=== PATIENT | female | born 1980 | race Caucasian/White ===

== ENCOUNTER 2018-07-30 08:40 | Inpatient (IN) | payer BC ==
[2018-07-30] VITALS (10 sets, daily range): BP systolic 112–128; BP diastolic 62–76; PULSE 99–112; TEMP 98.9–100.1
[~2018-07-30] VITALS: Ht 165.1 cm; Wt 68.2 kg
[2018-07-30 09:34] LABS: COLLECTION METHOD CLEAN CATCH
[2018-07-30 09:38] LABS: BASO # 0.1 (0.0-0.2); BASO % 0.5 % (0.0-2.0); EOS % 0.1 % (0-4.0); GRAN # 17.8 (1.4-6.5); GRAN % 88.7 % (42.2-75.2); HEMATOCRIT 43.3 % (37.0-47.0); HEMOGLOBIN 14.7 g/dl (12.5-16.0); LYMPH % 4.9 % (20.0-51.0); MEAN CELL VOLUME 103 fl (80.0-100.0); MEAN CORPUSCULAR HEMOGLOBIN 35 pg (27.0-31.0); MEAN CORPUSCULAR HGB CONC 34 g/dl (33.0-37.0); MEAN PLATELET VOLUME 10.2 fl (7.4-10.4); MONO % 5.1 % (1.7-9.3); PLATELET COUNT 312 K/mm3 (130-400); RED BLOOD COUNT 4.22 M/mm3 (4.10-5.30); REDCELL DISTRIBUTION WIDTH-CV 12.6 % (11.5-14.5)
[2018-07-30 09:41] LABS: MUCOUS Present /lpf; PH 6 (5-8); SQUAMOUS EPITHELIAL 0-2 /hpf; URINE APPEARANCE Clear; URINE BACTERIA Rare /hpf; URINE BILIRUBIN Negative (NEGATIVE); URINE BLOOD Negative (NEGATIVE); URINE COLOR Yellow; URINE GLUCOSE Negative (NEGATIVE); URINE KETONE 2+ (NEGATIVE); URINE LEUKOCYTE ESTERASE Negative (NEGATIVE); URINE NITRATE Negative (NEGATIVE); URINE PROTEIN(semi-quant) Negative (NEGATIVE); URINE RBC 0-2 /hpf; URINE UROBILINOGEN Negative (NEGATIVE)
[2018-07-30 09:54] LABS: ALBUMIN 4.9 gm/dL (3.5-5.0); C-REACTIVE PROTEIN 0.6 mg/dL (0.0-0.9); CALCIUM 10.7 mg/dL (8.4-10.2); CREATININE, serum 0.62 mg/dL (0.52-1.25); POTASSIUM 4.3 mmol/L (3.4-5.0); TOTAL PROTEIN 8.4 gm/dL (6.4-8.2)
--- NOTE | 2018-07-30 15:26 | NUR ---
1500 PT ARRIVES FROM ED VIA CART AND TO BED. 1526 ASSESSMENT COMPLETED AND PLAN OF CAR DISCUSSED WITH PT AND SPOUSE.
--- NOTE | 2018-07-30 18:37 | NUR ---
1810 RETURED TO RM 221 FROM PACU. MONITORS IN PLACE. ICE CHIPS, WTER AND CRACKERS PROVDED. 182 SPOUSE IN ROOM. 182 REPORT TO NEXT SHIFT AND CARE ASSUMED BY SAME.
--- NOTE | 2018-07-30 21:50 | NUR ---
Pt calls out stating " I was sleeping and woke up in a lot of pain, in my stomach and in my R shoulder" IV Morphine given, K-pad provided.
[2018-07-31 06:45] VITALS: BP 97/64; PULSE 102; TEMP 99.8
[2018-07-31 07:26] LABS: HEMATOCRIT 37.4 % (37.0-47.0); MEAN CELL VOLUME 102 fl (80.0-100.0); MEAN CORPUSCULAR HEMOGLOBIN 35 pg (27.0-31.0); MEAN CORPUSCULAR HGB CONC 34 g/dl (33.0-37.0); MEAN PLATELET VOLUME 9.8 fl (7.4-10.4); PLATELET COUNT 225 K/mm3 (130-400); RED BLOOD COUNT 3.67 M/mm3 (4.10-5.30)
[2018-07-31 07:28] LABS: HEMOGLOBIN 12.7 g/dl (12.5-16.0)
[2018-07-31 07:36] LABS: BAND 16 % (0-10); LYMPHOCYTE 10 % (20.0-51.0); NEUTROPHILS 67 % (42.0-75.2); PLATELET ESTIMATE NORMAL (NORMAL)
--- NOTE | 2018-07-31 09:13 | NUR ---
Initial visit; Patient thanked Broodmare Barn Groom for looking in on her, offering healing blessings and for keeping her in Brood[employer] Groom's prayers.
[2018-07-31 10:40] VITALS: TEMP 98.7
[2018-07-31 13:10] VITALS: BP 92/61; PULSE 105; TEMP 98.4
[2018-07-31 16:30] VITALS: BP 99/68; PULSE 92; TEMP 98.4
[2018-07-31 21:00] VITALS: BP 96/50; PULSE 86; TEMP 98.1
[2018-08-01 01:00] VITALS: BP 101/57; BP 95/64; PULSE 91; PULSE 96; TEMP 97.8; TEMP 98.3
[2018-08-01 05:00] VITALS: BP 96/59; PULSE 90; TEMP 98.4
[2018-08-01 07:08] LABS: HEMATOCRIT 42.6 % (37.0-47.0); HEMOGLOBIN 14.4 g/dl (12.5-16.0); MEAN CELL VOLUME 101 fl (80.0-100.0); MEAN CORPUSCULAR HEMOGLOBIN 34 pg (27.0-31.0); MEAN CORPUSCULAR HGB CONC 34 g/dl (33.0-37.0); MEAN PLATELET VOLUME 10.8 fl (7.4-10.4); PLATELET COUNT 232 K/mm3 (130-400); RED BLOOD COUNT 4.21 M/mm3 (4.10-5.30); REDCELL DISTRIBUTION WIDTH-CV 12.7 % (11.5-14.5)
[2018-08-01 07:17] LABS: ALBUMIN 3.7 gm/dL (3.5-5.0); BILIRUBIN,TOTAL 1.8 mg/dL (0.0-1.0); CALCIUM 9.7 mg/dL (8.4-10.2); CREATININE, serum 0.85 mg/dL (0.52-1.25); POTASSIUM 3.1 mmol/L (3.4-5.0); TOTAL PROTEIN 6.7 gm/dL (6.4-8.2)
[2018-08-01 07:25] LABS: BAND 21 % (0-10); LYMPHOCYTE 16 % (20.0-51.0); NEUTROPHILS 60 % (42.0-75.2); PLATELET ESTIMATE NORMAL (NORMAL)
[2018-08-01 08:45] VITALS: BP 88/57; PULSE 113; TEMP 98.2
== END 2018-08-01 13:30 | disposition home or self-care (01) | DRG 343 ==
LOC: COL.ER 08:40 → OB 13:52
PROVIDERS: Physician Assistant; ADMIT Surgery
PROC: 0DTJ4ZZ Resection of Appendix, Percutaneous Endoscopic Approach (ICD-10-PCS; principal; 2018-07-30 15:45)
DX: K35.891 Other acute appendicitis without perforation, with gangrene (principal); Z87.891 Personal history of nicotine dependence
CPT/HCPCS: G0378; J1100; J1170; J1885; J2250; J2270; J2405; J2543; J2550; J2704; J3010; J7030; Q9967

== ENCOUNTER 2018-08-03 15:06 | Inpatient (IN) | payer BC ==
[~2018-08-03] VITALS: Ht 165.1 cm; Wt 66.7 kg
[2018-08-03 15:58] LABS: BASO # 0.1 (0.0-0.2); BASO % 0.6 % (0.0-2.0); EOS % 0.1 % (0-4.0); GRAN # 6.2 (1.4-6.5); GRAN % 68.4 % (42.2-75.2); HEMATOCRIT 39.9 % (37.0-47.0); HEMOGLOBIN 14.1 g/dl (12.5-16.0); LYMPH % 11.2 % (20.0-51.0); MEAN CELL VOLUME 97 fl (80.0-100.0); MEAN CORPUSCULAR HEMOGLOBIN 34 pg (27.0-31.0); MEAN CORPUSCULAR HGB CONC 35 g/dl (33.0-37.0); MEAN PLATELET VOLUME 10.7 fl (7.4-10.4); MONO # 1.2 (0.1-0.6); PLATELET COUNT 307 K/mm3 (130-400); RED BLOOD COUNT 4.12 M/mm3 (4.10-5.30); REDCELL DISTRIBUTION WIDTH-CV 12.8 % (11.5-14.5)
[2018-08-03] MEDS ORDERED: TYLENOL 500MG500 MG PO (15:59)
[2018-08-03] MEDS ORDERED: ROXICODONE 55 MG/TAB PO (16:05)
[2018-08-03] MEDS ORDERED: ZOFRAN 4MG T4 MG/TAB PO (16:05)
[2018-08-03] MEDS ORDERED: AMOXICILLIN 8751 TAB PO (16:05)
[2018-08-03] MEDS ORDERED: COLACE 100100 MG/CAP PO (16:06)
[2018-08-03] MEDS ORDERED: MIRALAX119G PO (16:06)
[2018-08-03] MEDS ORDERED: DULCOLAX STOOL100 MG PO (16:06)
[2018-08-03 16:13] LABS: ALBUMIN 3.2 gm/dL (3.5-5.0); BILIRUBIN,TOTAL 1.6 mg/dL (0.0-1.0); CALCIUM 9.4 mg/dL (8.4-10.2); CREATININE, serum 0.79 mg/dL (0.52-1.25); POTASSIUM 3.7 mmol/L (3.4-5.0)
[2018-08-03 16:39] LABS: C-REACTIVE PROTEIN 37.7 mg/dL (0.0-0.9)
--- NOTE | 2018-08-03 17:15 | NUR ---
Received patient from ED with post-op ileus. Abdomen distended and firm. No bowel sounds heard per auscultation. Denies flatus. Denies need for pain medication at this time. IV fluids infusing.
[2018-08-03 17:20] VITALS: BP 118/75; PULSE 92; TEMP 98.4
--- NOTE | 2018-08-03 18:30 | NUR ---
Ambulating in halls with spouse without complaint.
[2018-08-03 20:07] VITALS: BP 104/88; PULSE 98; TEMP 97.5
[2018-08-04] VITALS (7 sets, daily range): BP systolic 109–125; BP diastolic 70–75; PULSE 93–111; TEMP 98.5–100.4
--- NOTE | 2018-08-04 06:20 | NUR ---
PT IN BED. ZOFRAN FOR NAUSEA. DILAUDID FOR PAIN. ABDOMEN DISTENDED. HYPOACTIVE BOWEL TONES.
[2018-08-04 07:13] LABS: HEMATOCRIT 35.3 % (37.0-47.0); HEMOGLOBIN 12.4 g/dl (12.5-16.0); MEAN CELL VOLUME 98 fl (80.0-100.0); MEAN CORPUSCULAR HEMOGLOBIN 34 pg (27.0-31.0); MEAN CORPUSCULAR HGB CONC 35 g/dl (33.0-37.0); MEAN PLATELET VOLUME 11.1 fl (7.4-10.4); PLATELET COUNT 302 K/mm3 (130-400); RED BLOOD COUNT 3.62 M/mm3 (4.10-5.30)
[2018-08-04 07:22] LABS: CALCIUM 8.1 mg/dL (8.4-10.2); CREATININE, serum 0.61 mg/dL (0.52-1.25); POTASSIUM 3.1 mmol/L (3.4-5.0)
--- NOTE | 2018-08-04 09:00 | NUR ---
Patient alert and oriented, answers questions appropriately. See assessment. Abdomen round, distended. Bowel sounds absent x4 quads. No flatus. C/o nausea, pain 8/10. No other c/o at this time.
--- NOTE | 2018-08-04 11:51 | NUR ---
toll transmission worker met with patient and spouse to discuss discharge planning. Patient lives with spouse and plans to return there upon discharge. Patient's is independent with her activities of daily living and her primary care provider is Dr Lake. Patient denies having difficulty obtaining her prescriptions.
--- NOTE | 2018-08-04 12:40 | NUR ---
Order received per Dr Stratton to insert NGT. NGT inserted with no complications. Immediate return of large amount of green drainage. Patient had immediate relief of abdominal pain/pressure as well. NGT inserted to 55cm naseem and secured with NG secure.
--- NOTE | 2018-08-04 20:30 | NUR ---
Patient in bed. Has NGT to right nare to LIS with green drainage returning. Abdomen distended, with few bowel sounds noted. Placement of NGT confirmed with air bolus. Reports pain 6/10 to abdomen, was given IV Dilaudid at 1999. IV site to left AC with fluids infusing at 150cc/hr, no redness or swelling noted. Lap sites from previous Lap Appy are healed, has bruising to all sites to abdomen.
--- NOTE | 2018-08-04 23:02 | NUR ---
Complains of pain 6/10 to abdomen and side. Medicated with Dilaudid 0.5mg IV now.
[2018-08-05] VITALS (12 sets, daily range): BP systolic 95–121; BP diastolic 56–72; PULSE 101–122; TEMP 98–99.1
--- NOTE | 2018-08-05 02:39 | NUR ---
Pt complains of pain to abdomen 6/10, sharp and pressure. Has NGT to right nare to LIS. Medicated with IV Dilaudid 0.5mg now. IVF to left AC infusing without redness or swelling. Remains on ice chips and sips only.
--- NOTE | 2018-08-05 05:50 | NUR ---
Patient up to bathroom, voids 200cc of mallory urine at this time. Reports pain 6/10 to abdomen and into her back. Medicated with IV Dilaudid 0.5mg now. NGT had 700cc of green drainage through the night. Taking ice chips sparingly. Patient appears more uncomfortable as the night has gone on.
[2018-08-05 06:21] LABS: HEMOGLOBIN 12.3 g/dl (12.5-16.0); MEAN CELL VOLUME 97 fl (80.0-100.0); MEAN CORPUSCULAR HEMOGLOBIN 34 pg (27.0-31.0); MEAN CORPUSCULAR HGB CONC 35 g/dl (33.0-37.0); MEAN PLATELET VOLUME 10.6 fl (7.4-10.4); PLATELET COUNT 345 K/mm3 (130-400); RED BLOOD COUNT 3.67 M/mm3 (4.10-5.30); REDCELL DISTRIBUTION WIDTH-CV 13.2 % (11.5-14.5)
[2018-08-05 06:38] LABS: HEMATOCRIT 35.4 % (37.0-47.0)
[2018-08-05 06:41] LABS: ALBUMIN 2.3 gm/dL (3.5-5.0); BILIRUBIN,TOTAL 1.3 mg/dL (0.0-1.0); CALCIUM 7.6 mg/dL (8.4-10.2); CREATININE, serum 0.58 mg/dL (0.52-1.25); TOTAL PROTEIN 4.8 gm/dL (6.4-8.2)
[2018-08-05 07:00] LABS: POTASSIUM 2.8 mmol/L (3.4-5.0)
[2018-08-05 07:02] LABS: BAND 29 % (0-10); LYMPHOCYTE 8 % (20.0-51.0); NEUTROPHILS 54 % (42.0-75.2); PLATELET ESTIMATE NORMAL (NORMAL)
--- NOTE | 2018-08-05 09:07 | NUR ---
Patient alert and oriented, answers questions appropriately. See assessment. Dr Stratton notified at 0700 of lab values and status update, see orders. NGT remains to LIS, secured to nose, flushes easily, dark brown liquid in canister. Abdomen rounded and firm. No bowel sounds heard. No flatus. Pain to abdomen with palpation. NGT clamped for CT contrast administration. No other c/o at this time.
--- NOTE | 2018-08-05 09:12 | NUR ---
Dr Stratton here to see patient.
--- NOTE | 2018-08-05 09:59 | NUR ---
Initial visit; Patient and her thanked Cigarette Book Maker for looking in on her and offering God's blessings.
--- NOTE | 2018-08-05 16:58 | NUR ---
Patient returns from PACU. Assessment unchanged except for; abdomen soft, non distended. Bowel sounds absent. No flatus. Midline incision with dressing clean, dry and intact. NGT remains in place to right nare connected to LIS, brown drainage noted. Griffin catheter intact and draining clear yellow urine. PCEA setting verified agaisnt MAR, epidural catheter intact, no complications noted. No numbness or tingling to BLE, pulses palpable. No c/o at this time.
--- NOTE | 2018-08-05 20:15 | NUR ---
Patient awakens to name. Is alert, medicated with Epidural pump infusing at 6cc/hr. Has NGT to right nare, is to LIS with green drainage noted in the tubing. Lungs diminished bilaterally, does poor return demonstration of IS use. Taking ice chips moderately. Has midline incision covered with ABD dressing. Bowel sounds quiet. NGT placement confirmed with air bolus. Has crowder to BSD with yellow urine. PICC to right upper arm with IVF D5NS with 20 KCL infusing at 125cc/hr, no redness or swelling. SCD's in place bilateral lower extremities. Family at bedside. Patient reports pain 2/10.
--- NOTE | 2018-08-05 22:09 | NUR ---
PT INSTRUCTED ON IS. FAMILY IN ROOM. PT DEMONSTRATED IS X 2 BREATHS AT LESS THAN 500. I SAID YOU REALLY NEED TO WORK ON THIS. THE SAID SHE IS JUST WAKING UP CAN WE NOT WAIT ON THIS. I SAID SHE NEEDS TO BE DOING THIS TO HELP PREVENT ISSUES WITH HER LUNGS SINCE SHE IS NOT DEEP BREATHING. I INFORMED THEM THAT SHE NEEDS TO BE DOING THIS EVERY HOUR AND NEEDS TO WORK ON GETTING IT ABOVE 500. THE SAID OK.
[2018-08-06] VITALS (7 sets, daily range): BP systolic 97–147; BP diastolic 51–78; PULSE 84–117; TEMP 97.7–100.1
--- NOTE | 2018-08-06 00:10 | NUR ---
Patient has Temp 100.1. Instructed on use of IS, does return demo at this time.
[2018-08-06 06:17] LABS: MEAN CELL VOLUME 95 fl (80.0-100.0); MEAN CORPUSCULAR HGB CONC 36 g/dl (33.0-37.0); MEAN PLATELET VOLUME 11.1 fl (7.4-10.4); PLATELET COUNT 352 K/mm3 (130-400); REDCELL DISTRIBUTION WIDTH-CV 13.4 % (11.5-14.5)
[2018-08-06 06:33] LABS: HEMATOCRIT 28.5 % (37.0-47.0); HEMOGLOBIN 10.3 g/dl (12.5-16.0); MEAN CORPUSCULAR HEMOGLOBIN 34 pg (27.0-31.0)
[2018-08-06 06:48] LABS: ALBUMIN 1.7 gm/dL (3.5-5.0); BILIRUBIN,TOTAL 1.6 mg/dL (0.0-1.0); CALCIUM 6.7 mg/dL (8.4-10.2); CREATININE, serum 0.57 mg/dL (0.52-1.25); POTASSIUM 3.2 mmol/L (3.4-5.0); TOTAL PROTEIN 3.9 gm/dL (6.4-8.2)
--- NOTE | 2018-08-06 06:50 | NUR ---
appears to be sleeping, bedside shift report received from NATI Frost
--- NOTE | 2018-08-06 07:15 | NUR ---
appears to continue to sleep, Dr Stratton notified of elevated WBC
[2018-08-06 07:45] LABS: BAND 30 % (0-10); LYMPHOCYTE 6 % (20.0-51.0); NEUTROPHILS 60 % (42.0-75.2); PLATELET ESTIMATE NORMAL (NORMAL)
--- NOTE | 2018-08-06 08:15 | NUR ---
awake resting in bed, full assessment completed, see interventions for further info, was able to roll to side and epidural checked, has 4-5cm area of shadowing on abdominal dressing, NG to low intermittent suction with light green fluid in tubing, states epidural is controlling her pain and explained the use of the TRAY CHECKER button as she had forgotten how to use this, is at bedside now
--- NOTE | 2018-08-06 09:00 | NUR ---
PICC intact right upper arm. With sterile technique right upper arm PICC dressing change done with insertion site cleansed with ChloraPrep 1, gauze removed with no drainage noted, skin prep, chlorhexidine impregnated disc applied, and StatLock applied, no signs or symptoms of IV complications. noted no concerns voiced. arm wrapped with Freeman to protect catheter.
--- NOTE | 2018-08-06 09:45 | NUR ---
assisted up to side of bed and moves well, then assisted her to standing and over and into recliner, did well while moving, reminded to use her INTEGRITY SPECIALIST, has mod amount green liquid from NG in reservoir
[2018-08-06 10:39] LABS: MAGNESIUM 2.4 mg/dL (1.6-2.3); PHOSPHOROUS 2.2 mg/dL (2.5-4.5)
--- NOTE | 2018-08-06 11:00 | NUR ---
remains up in chair visiting with a friends, explained to her we will assist her with ambulating to the mijares and then to bed to rest, verbalizes understanding
--- NOTE | 2018-08-06 12:00 | NUR ---
Dr Stratton in to see tono
--- NOTE | 2018-08-06 12:30 | NUR ---
assisted her with cleaning up and changing her gown, then assisted oaut of chair and ambulated to door and back to bed, into bed and will try to sleep,
[2018-08-06 13:19] LABS: CHOLESTEROL 85 mg/dL (120-200); TRIGLYCERIDE 137 mg/dL
--- NOTE | 2018-08-06 15:00 | NUR ---
awakened and states has been sleeping well, informed her and her about blood sugars and possible insulin every 6h when TPN starts and verbalizes understanding, will plan to get up and take for a walk when TPN starts
--- NOTE | 2018-08-06 16:15 | NUR ---
she is awake and talking on phone, TPN started and IV fluids stopped, assisted out of bed and ambulated in mijares about 25 feet, tolerated well, then back to room and into recliner to rest, at bedside
--- NOTE | 2018-08-06 17:12 | NUR ---
resting in chair visiting with friends and
--- NOTE | 2018-08-06 18:40 | NUR ---
visiting with family and friends, bedside shift report given to NATI Frost
--- NOTE | 2018-08-06 21:00 | NUR ---
Patient in bed, alert and oriented x3. Family visiting. Has NGT to right nare to LIS with light green drainage. Air bolus confirmed placement of tube in the stomach. Lungs clear, uses IS better today. Abdominal midline dressing intact, shadowing noted same as yesterday. Bowel sounds remain quiet. Griffin to BSD with dk yellow urine. Has swelling to labia. Patient reports numbness to left outer leg and tightness to both thighs. Reassured numbness most likely due to epidural. No pitting edema noted to thighs. Has Epidural dressing to back, site secure. Right upper arm PICC with TPN infusing without problem. Wearing SCD's to lower legs. Taking ice chips without problem. Reports pain 2/10. No flatus.
[2018-08-07 01:57] VITALS: BP 102/54; PULSE 110; TEMP 98.6
--- NOTE | 2018-08-07 06:25 | NUR ---
Patient rested well this shift. No fevers to report. TPN infusing to R PICC line. Patient reports feeling "fluffy" all over, skin feels tight to her. No pitting edema to report, bilateral labia with swelling, offered ice pack which she refused. NGT with 100cc out this shift. Taking ice chips for oral moisture.
--- NOTE | 2018-08-07 06:35 | NUR ---
appears to be sleeping, bedside shift report received from NATI Frost
[2018-08-07 06:44] LABS: MEAN CELL VOLUME 98 fl (80.0-100.0); MEAN CORPUSCULAR HGB CONC 35 g/dl (33.0-37.0); MEAN PLATELET VOLUME 10.8 fl (7.4-10.4); PLATELET COUNT 379 K/mm3 (130-400); RED BLOOD COUNT 2.83 M/mm3 (4.10-5.30); REDCELL DISTRIBUTION WIDTH-CV 14.2 % (11.5-14.5)
[2018-08-07 06:48] LABS: HEMATOCRIT 27.6 % (37.0-47.0); HEMOGLOBIN 9.7 g/dl (12.5-16.0); MEAN CORPUSCULAR HEMOGLOBIN 34 pg (27.0-31.0)
[2018-08-07 07:01] LABS: CREATININE, serum 0.57 mg/dL (0.52-1.25); MAGNESIUM 2.2 mg/dL (1.6-2.3); PHOSPHOROUS 1.5 mg/dL (2.5-4.5)
[2018-08-07 07:17] LABS: BAND 10 % (0-10); LYMPHOCYTE 6 % (20.0-51.0); NEUTROPHILS 79 % (42.0-75.2); PLATELET ESTIMATE NORMAL (NORMAL)
[2018-08-07 07:21] LABS: STOMATOCYTE 1+
--- NOTE | 2018-08-07 07:50 | NUR ---
appears to continue to sleep
--- NOTE | 2018-08-07 08:37 | NUR ---
spoke with Dr Stratton and given results of lab and Temp, will medicate with tylenol 650mg po
[2018-08-07 09:00] VITALS: BP 108/61; PULSE 119; TEMP 102.2
--- NOTE | 2018-08-07 09:00 | NUR ---
full assessment completed, see interventions for further info, medicated with tylenol 650mg po, NG turned off from LIS, has dark green liquid in tubing, crowder cath patent draining clear dark mallory urine, has generalized edema and also edema to labia, tried to explain to her this was not abnormal and was not related to the TPN, would like to speak with dietitian and Radha was notified, abdominal dressing remains intact with some shadowing, suction tube attachment device to nose replaced, will assist her with hygeine and then will ambulat in the mijares
--- NOTE | 2018-08-07 10:19 | NUR ---
ambulated out in mijares to nurses station and back and moves well, states legs feel heavier today, ambulates with steady gait, back into room and into bed and will try and sleep for a while before visitors come, ice bag placed to labia for swelling, NG reconnected to Low Intermittent Suction with light green fluid in tubing, denied any nausea or vomitting after taking po tylenol and while tube was clamped,
--- NOTE | 2018-08-07 11:30 | NUR ---
assisted out of bed and into recliner, uses epidural SKIN DIVER after getting out of bed and into recliner, states ice bag to labia was helpful, at bedside and she is ready visit with some friends, denies needs
[2018-08-07 11:44] VITALS: BP 106/64; PULSE 108; TEMP 98.4
--- NOTE | 2018-08-07 12:23 | NUR ---
remains in chair visiting with friends and family and denies needs
--- NOTE | 2018-08-07 13:50 | NUR ---
visitors are gone and is ready to take a walk, ambulated down mijares approx 75 feet and then back to room and into bed and will try and take a nap, explained to her I will be back around 1515 to change IV fluids and verbalizes understanding, ice to salena,
--- NOTE | 2018-08-07 15:10 | NUR ---
appears to be dozing but awakened easily when entered room, denies needs,
[2018-08-07 16:58] VITALS: BP 114/60; PULSE 117; TEMP 99.4
--- NOTE | 2018-08-07 17:00 | NUR ---
Niurka visiting with and friends
--- NOTE | 2018-08-07 17:15 | NUR ---
assisted with ambulating in mijares approx 75-100 feet, c/o feeling like her abdomen was bigger than had been this am, is able to belch but still no flatus rectally, abdomen is soft and NG remains to Low Intermittent Suction, labia remains very edematous,
--- NOTE | 2018-08-07 18:30 | NUR ---
after being up in chair a short time noticied NG output had increased and had another 500ml green liquid in suction reservoir, dressing to abdomen removed, incision with leo and michael, each wick avanced 1/2 inch, incision has some brusing to distal end, covered with 4x4s and taped in place, tolerated well, is in bed now resting with at bedside
--- NOTE | 2018-08-07 18:52 | NUR ---
bedside shift report given to ELI Shaw
[2018-08-07 20:00] VITALS: BP 104/65; PULSE 117; TEMP 97.6
--- NOTE | 2018-08-07 20:00 | NUR ---
Patient resting in bed, family at bedside. Patient is alert and oriented, answers questions appropriately. TPN infusing per order to PICC in RUE. NG tube to LIS with pale green output in suction tubing. Midline incision dressing is CDI. Epidural in place, occlusive dressing intact. Patient has some generalized edema, evident in her lower extremities. Patient does complain of some pain in her right anterior ribs, states she believes the area to be just outside the reach of the epidural. Provided a warm pack, patient states this provides relief. Patient denies further needs at this time, call light within reach.
[2018-08-08] VITALS (216 sets, daily range): BP systolic 103–113; BP diastolic 60–66; PULSE 118–124; TEMP 98.2–99.5; O2SAT 47–100
[2018-08-08 06:21] LABS: HEMOGLOBIN 10.1 g/dl (12.5-16.0); MEAN CELL VOLUME 95 fl (80.0-100.0); MEAN CORPUSCULAR HEMOGLOBIN 34 pg (27.0-31.0); MEAN CORPUSCULAR HGB CONC 36 g/dl (33.0-37.0); MEAN PLATELET VOLUME 10.9 fl (7.4-10.4); PLATELET COUNT 397 K/mm3 (130-400); RED BLOOD COUNT 2.98 M/mm3 (4.10-5.30); REDCELL DISTRIBUTION WIDTH-CV 14.4 % (11.5-14.5)
[2018-08-08 06:32] LABS: ALBUMIN 1.8 gm/dL (3.5-5.0); BILIRUBIN,TOTAL 0.9 mg/dL (0.0-1.0); CALCIUM 7.3 mg/dL (8.4-10.2); CREATININE, serum 0.48 mg/dL (0.52-1.25); MAGNESIUM 2.2 mg/dL (1.6-2.3); PHOSPHOROUS 3.1 mg/dL (2.5-4.5); POTASSIUM 3.1 mmol/L (3.4-5.0); TOTAL PROTEIN 4.3 gm/dL (6.4-8.2)
[2018-08-08 06:38] LABS: HEMATOCRIT 28.3 % (37.0-47.0)
[2018-08-08 07:09] LABS: BAND 3 % (0-10); LYMPHOCYTE 4 % (20.0-51.0); MYELOCYTE 1 % (0-0); NEUTROPHILS 86 % (42.0-75.2); PLATELET ESTIMATE NORMAL (NORMAL)
[2018-08-08 07:14] LABS: TARGET CELLS 1+
--- NOTE | 2018-08-08 09:00 | NUR ---
Patient alert and oriented, answers questions appropriately. C/o nausea/vomitting despite NGT to LIS in place. No output noted in NG canister. NGT irrigated with tap water with gross amounts of stomach content returned in canister. Nausea resolved. NGT in right nare and secured to nose. Abdomen firm, distended. Tinkling bowel sounds noted to all four quads. States +flatus through the night. PCEA settings verified against MAR. Epidural catheter in place and secured with foam tape to low back, small amount serosanguinous drainage noted to insertion site. No c/o numbness or tingling noted to BLE, pulses palpable. Griffin catheter in place, patent and draining mallory urine. Labial swelling noted, thick white discharged noted around catheter site, c/o labial itching. C/o mid back pain 09/28. Dr Stratton updated on patient status.
--- NOTE | 2018-08-08 10:00 | NUR ---
CT constrast given per NGT. NGT clamped. Patient incontinent of large amount liquid stool.
--- NOTE | 2018-08-08 14:45 | NUR ---
Anesthesia at bedside replacing epidural catheter.
--- NOTE | 2018-08-08 15:26 | NUR ---
Report received from Maryana promotions assistant.
--- NOTE | 2018-08-08 16:30 | NUR ---
Pt arrived to ICU 2 via bed. Pt A/Ox3. Has some abd pain while turning. Epidural dressing c/d/i. Midline abd dressing c/d/i. NGT in right nare to LIS. Green drainage present. now at bedside. will monitor.
--- NOTE | 2018-08-08 16:35 | NUR ---
Dr Low at bedside discussing plan of care with pt and pt's .
--- NOTE | 2018-08-08 17:00 | NUR ---
Pt starting to c/o back pain all over. Epidural dressing saturated. Anesthesia paged. Will come see pt.
--- NOTE | 2018-08-08 17:20 | NUR ---
Dr Stratton at bedside. updated on pt status. 2mg IV morphine given for breakthrough pain. No changes with back pain. Anesthesia paged again.
--- NOTE | 2018-08-08 17:55 | NUR ---
Anesthesia at bedside. Epidural site checked. Dressing reapplied. Anesthesia administered bolus dose through epidural. Pt states she feels numbness on BLE. Anesthesia monitoring at bedside.
--- NOTE | 2018-08-08 18:10 | NUR ---
Pt's HR St 130s. SBP 70s after bolus dose given. Anesthesia and Dr Low at bedside.
[2018-08-08 18:11] LABS: ARTERIAL BLD GAS O2 SATURATION 96.2 % (92-100); ARTERIAL BLD GAS TCO2 CT 24.2; ARTERIAL BLOOD GAS BASE EXCESS 0.3 (-2-2); ARTERIAL BLOOD GAS HCO3 23.3 meq/L (22-26); ARTERIAL BLOOD GAS PCO2 31.6 mmHg (35-45); ARTERIAL BLOOD GAS PO2 81.7 mmHg (80-100); ARTERIAL BLOOD GAS pH 7.49 (7.35-7.45)
--- NOTE | 2018-08-08 18:15 | NUR ---
SBP improved after lowering pt's HOB. Pt states she still feels numb on BLE. Anesthesia aware. Pt's at bedside. Will monitor.
[2018-08-08 18:16] LABS: CALCIUM 7.2 mg/dL (8.4-10.2); CREATININE, serum 0.46 mg/dL (0.52-1.25); POTASSIUM 3.4 mmol/L (3.4-5.0)
--- NOTE | 2018-08-08 19:00 | NUR ---
Report given to NATI Victor.
--- NOTE | 2018-08-08 19:45 | NUR ---
PT HAS EPIDURAL. ANESTHESIA PRESENT. EPIDURAL SITE CURRENTLY BEING CHANGED BY ANESTHESIA. EPIDURAL IS THORACIC LEVEL. PT IS NUMB AT WAIST LEVEL AND STATES SHE THINKS THE ANESTHESIA IS STARTING TO WEAR OFF.
--- NOTE | 2018-08-08 22:45 | NUR ---
PT HAS FULL SENSORY AND MOTOR FUNCTION RETURN TO BILAT LOWER LEGS.
--- NOTE | 2018-08-08 23:00 | NUR ---
PT ABD MIDLINE SURGICAL SITE DRESSING CHANGED. CONTACTED DR GRANDE FOR ORDER CLARIFICATION FOR DRESSING CHANGE; WAS INSTRUCTED TO WITHDRAWL WOUND MARCOS. ORDER ON COMPUTER STATES TO ADVANCE WOUND MARCOS. PT DRESSING HAS SEROSANGUIOUS DRAINAGE.
[2018-08-09] VITALS (586 sets, daily range): O2SAT 38–100
[2018-08-09 05:14] LABS: MEAN CELL VOLUME 99 fl (80.0-100.0); MEAN CORPUSCULAR HGB CONC 34 g/dl (33.0-37.0); MEAN PLATELET VOLUME 11.1 fl (7.4-10.4); PLATELET COUNT 436 K/mm3 (130-400); RED BLOOD COUNT 2.52 M/mm3 (4.10-5.30); REDCELL DISTRIBUTION WIDTH-CV 15.1 % (11.5-14.5)
[2018-08-09 05:21] LABS: HEMOGLOBIN 8.6 g/dl (12.5-16.0); MEAN CORPUSCULAR HEMOGLOBIN 34 pg (27.0-31.0)
[2018-08-09 05:31] LABS: ALBUMIN 1.8 gm/dL (3.5-5.0); BILIRUBIN,TOTAL 0.7 mg/dL (0.0-1.0); CALCIUM 7.2 mg/dL (8.4-10.2); CREATININE, serum 0.5 mg/dL (0.52-1.25); MAGNESIUM 2.3 mg/dL (1.6-2.3); PHOSPHOROUS 3.2 mg/dL (2.5-4.5); POTASSIUM 3.6 mmol/L (3.4-5.0); TOTAL PROTEIN 4.2 gm/dL (6.4-8.2)
[2018-08-09 06:05] LABS: INR 1.7 (0.8-3.0); PROTHROMBIN TIME 19.1 SECONDS (9.7-12.8)
[2018-08-09 06:11] LABS: BAND 19 % (0-10); LYMPHOCYTE 6 % (20.0-51.0); NEUTROPHILS 72 % (42.0-75.2); PLATELET ESTIMATE INCREASED (NORMAL); TARGET CELLS 1+
[2018-08-09 06:12] LABS: POIKILOCYTOSIS 1+
--- NOTE | 2018-08-09 07:00 | NUR ---
PT REPORT HANDED OFF AT 0730. WHEN REPORT WAS HANDED OFF 08/08/18 1900; PT CHARTING INTERVENTIONS WERE NOT ENTERED IN APPROPRIATELY PER UNIT GUIDELINES. THIS WAS NOT IDENTIFIED UNTIL [id number]. ITEMS ARE NOW CORRECTED.
--- NOTE | 2018-08-09 07:15 | NUR ---
RECEIVED REPORT FROM NATI DAWSON.
--- NOTE | 2018-08-09 08:35 | NUR ---
DR. GRANDE AT BEDSIDE FOR ROUNDS, MID ABDOMEN INCISION DRESSING CHANGED PER DR'S ORDER. YELLOWISH DARINAGE NOTED AT THE INCISION, CLEANSE AND NEW DRESSING APPLIED.
--- NOTE | 2018-08-09 08:45 | NUR ---
NGT CLAMPED PER DR. GRANDE' ORDER.
--- NOTE | 2018-08-09 10:30 | NUR ---
THORACENTESIS DONE AT BEDSIDE BY DR. AKERS, PT TOLERATED PROCEDURE WELL. PUNCTURE SITE AT L BACK COVERED EDIE SHANKAR. WILL CONTINUE TO MONITOR.
[2018-08-09 11:07] LABS: ARTERIAL BLD GAS O2 SATURATION 93.4 % (92-100); ARTERIAL BLD GAS TCO2 CT 23.9; ARTERIAL BLOOD GAS PCO2 31.2 mmHg (35-45); ARTERIAL BLOOD GAS PO2 64.9 mmHg (80-100); ARTERIAL BLOOD GAS pH 7.49 (7.35-7.45)
[2018-08-09 12:30] LABS: PLEURAL FLUID RBC 3000 /mm3 (0-0); PLEURAL FLUID WBC 916 /mm3
[2018-08-09 12:32] LABS: PLEURAL FLUID APPEARANCE CLOUDY; PLEURAL FLUID COLOR YELLOW
--- NOTE | 2018-08-09 12:45 | NUR ---
RECHECKED GASTRIC RESIDUAL VIA NGT, 200 ML OF GREEN FLUID REPORTED TO DR. GRANDE, ORDERED TO KEEP CLAMPED FOR ANOTHER FOUR HOURS AND RECHECK.
[2018-08-09 12:57] LABS: GLUCOSE,PLEURAL FLUID 116 mg/dL
[2018-08-09 13:00] LABS: TOTAL PROTEIN,PLEURAL FLUID < 2.0 gm/dL
--- NOTE | 2018-08-09 17:04 | NUR ---
PT'S NGT BACK TO LOW INTERMITTENT SUCTION ORDERED BY DR. GRANDE.
--- NOTE | 2018-08-09 17:10 | NUR ---
REPORT GIVEN TO NATI DAWSON.
--- NOTE | 2018-08-09 20:00 | NUR ---
WILL ASSESS PT POSTERIOR ONCE PAIN UNDER CONTROL. NOTICED BURISING AROUND PT MIDLINE AND LAP INCISIONS. ASSESSMENT CONVEYED TO DR GRANDE OVER PHONE. PT REMAINS PRE AND POST MED ADMINISTRATION 03/31 PAIN. PT DESCRIBES PAIN TO BE IN MID BACK RADIATING TO ABDOMENT A SHARP PRESSURE PAIN.
--- NOTE | 2018-08-09 20:06 | NUR ---
1905: SHIFT CHANGE REPORT INITIATED IN PT ROOM. PT IS MOANING AND IN PAIN. PT GIVEN 1MG MORPHINE IV AT 1855 BY DAY SHIFT. PT REFUSED DAY SHIFT NURSE AND ACCOUNTING PROFESSIONAL NURSE OFFER FOR PRN BENADRYL FOR ANXIETY. 1930: NURSE IN PT ROOM TO INITIATE PT ASSESSMENT. PT ASKING FOR NURSE TO CALL DOCTOR TO DO SOMETHING REGARDING PAIN. NURSE EXPLAINS TO PT WHAT MEDS CAN BE GIVEN AND WHEN AND THE IMPORTANCE OF COMPLETING AN ASSESSMENT FIRST PRIOR TO CALLING THE DOCTOR. THE DOCTOR WAS IN APPROXIMATELY TWO HOURS PRIOR AND SAW THE PT. 1934: ANESTHESIA ENTERS ROOM AND ASKS NURSE TO HOLD COMPLETING ASSESSMENT TO COME OUT TO THE HALLWAYS FOR PT SUMMARY OF SHIFT REPORT ASD ASKS FOR ADDITIONAL PRN MORPHINE TO BE ADMINISTERED. 1939: NURSE IN ROOM WITH PRN MORPHINE. ANESTHESIA REQUESTS IV BENADRYL BE ADMINISTERED. PT CONTINUES TO REFUSE. ANESTHESIA INFORMED PRN BENADRYL IS PO ONLY. ANESTHESIA CHANGES BENADRYL ORDER. 1944: ANSETHESIA BOLUS PT EPIDURAL 1952: ASSESSMENT COMPLETED. PAIN MEDS AND BENADRYL ADMINISTERED IV BY NURSE. 1999: DR GRANDE CONTACTED WITH PT UPDATE AND GIVES PRN ATIVAN ORDER PER REQUEST OF ANESTHESIA.
--- NOTE | 2018-08-09 21:30 | NUR ---
PT GIVEN WARM COMPRESS TO APPLY TO ABD FOR PAIN. PT TRIED WARM COMPRESS AT HER REQUEST AND AFTER TWO MINUTES REMOVED IT DUE TO THE WEIGHT OF THE COMPRESS CAUSED PAIN. 2234: PT NAUSEATED. HEAD OF BED ELEVATED. PT PROVIDED PRN MEDICATION
[2018-08-10] VITALS (656 sets, daily range): BP systolic 121–145; BP diastolic 67–94; PULSE 24–114; TEMP 97.9–98.1; O2SAT 33–100
--- NOTE | 2018-08-10 00:30 | NUR ---
0030: PREPARING TO REPOSTION PT WHEN FOUND EPIDURAL WAS NOT IN PLACE. AT THIS TIME ABD WAS ASSESSED AND ABD DRESSING WAS DRY AND INTACT. 0200: PREPARING PT FOR BED BATH. ABD DRESSING IS SATURATED AT THE TOP (FIRST FOUR INCHES OF DRESSING) AND OOZING AT THE BOTTOM. WOUND CULTURE SWAB COLLECTED. BED BATH PROVIDED. SITE REDRESSED WITH TELFA AND DRY GAUZE WITH PAPER TABE. PT C/O DRY MOUTH. PT PROVIDED MOUTH MOISTURIZER. WHEN CLEANING PT. GENITALIA IS SWOLLEN; TO PREVENT SKIN BREAKDOWN AND KEEP PRESSURE OFF LABIA MAJORA, DEPENDS WAS REMOVED AND GLASS STAT LOCK REMOVED. GLASS TUBING SECURED TO BED.
--- NOTE | 2018-08-10 02:00 | NUR ---
0030: PT REPOSTIONED IN BED. PT SHEET WAS WET AT HEAD OF BED PRIOR TO MOVING PT. PTS EPIDURAL SITE WAS WET AROUND. END OF EPIDURAL WAS OUT OF PT. UNKNOWN HOW LONG PT WAS NOT RECEIVING EPIDURAL MEDICATION. TELEPHONE DIRECTORY DISTRIBUTOR DRIVER PUMP ORDERS INTIATED. 0155: TELEPHONE DIRECTORY DISTRIBUTOR DRIVER PUMP SET-UP AND CONNECTED TO PT. PT INSTRUCTED ON TELEPHONE DIRECTORY DISTRIBUTOR DRIVER PUMP.
[2018-08-10 05:50] LABS: BASO # 0.1 (0.0-0.2); BASO % 0.4 % (0.0-2.0); EOS # 0.1 (0.0-0.7); EOS % 0.5 % (0-4.0); GRAN # 23.7 (1.4-6.5); GRAN % 82.9 % (42.2-75.2); LYMPH # 1.3 (1.2-3.4); LYMPH % 4.5 % (20.0-51.0); MEAN CELL VOLUME 100 fl (80.0-100.0); MEAN CORPUSCULAR HGB CONC 34 g/dl (33.0-37.0); MEAN PLATELET VOLUME 11.3 fl (7.4-10.4); MONO # 1.6 (0.1-0.6); MONO % 5.5 % (1.7-9.3); PLATELET COUNT 512 K/mm3 (130-400); RED BLOOD COUNT 2.42 M/mm3 (4.10-5.30); REDCELL DISTRIBUTION WIDTH-CV 15.2 % (11.5-14.5)
[2018-08-10 05:56] LABS: INR 1.7 (0.8-3.0); PROTHROMBIN TIME 19.5 SECONDS (9.7-12.8)
[2018-08-10 06:03] LABS: BILIRUBIN,TOTAL 0.6 mg/dL (0.0-1.0); CALCIUM 7.5 mg/dL (8.4-10.2); CREATININE, serum 0.41 mg/dL (0.52-1.25); MAGNESIUM 2.2 mg/dL (1.6-2.3); PHOSPHOROUS 3.6 mg/dL (2.5-4.5); POTASSIUM 4.1 mmol/L (3.4-5.0); TOTAL PROTEIN 4.7 gm/dL (6.4-8.2)
[2018-08-10 06:10] LABS: HEMATOCRIT 24.1 % (37.0-47.0); HEMOGLOBIN 8.2 g/dl (12.5-16.0); MEAN CORPUSCULAR HEMOGLOBIN 34 pg (27.0-31.0)
--- NOTE | 2018-08-10 07:10 | NUR ---
Report recieved from Kayleigh DAMIAN. Patient sleeps in bed, talking out loud but unable to comprehend. Call light in reach, ASSEMBLER CRIMPER in hand.
--- NOTE | 2018-08-10 07:50 | NUR ---
NG clamped at this time.
--- NOTE | 2018-08-10 08:00 | NUR ---
here, requests update, given at this time. Plan for day made. Explained use of MORTICIAN INVESTIGATOR and that only patient is allowed to push button for pain medication delivery, states understanding.
--- NOTE | 2018-08-10 10:10 | NUR ---
INSECTICIDE SPRAYER bolus 1mg given and INSECTICIDE SPRAYER demand increased to 1.5mg per Dr. Cano' previous INSECTICIDE SPRAYER orders. Jeannette RN at bedside as second nurse procurement engineer. Patient and at bedside aware of changes, voice understanding. Patient complains of pain 7.5/10, but easily returns to sleep when not stimulated. Does complain of nausea, prn Phenergan given at 0955 to help.
--- NOTE | 2018-08-10 12:15 | NUR ---
NG residual checked. Patient has rested quietly this morning. Awakens easily and answers questions appropriately but drifts off to sleep and will talk nonsense in her sleep. Takes sips of H2O without difficulty and states no nausea at this time.
--- NOTE | 2018-08-10 15:40 | NUR ---
Patient transfers up to chair with 2:1 SBA. Sits up in chair so friend can comb hair. Linens changed. Continues to refused bath or back rub. Bandaide dressing and dressing from epidural insertion removed, no drainage on either noted. 1615 Returns to bed with minimal assist, tolerates well. at side.
--- NOTE | 2018-08-10 19:29 | NUR ---
Report given to Kayleigh DAMIAN. Patient resting quietly with friend at bedside.
--- NOTE | 2018-08-10 21:51 | NUR ---
AUDIBLE BOWEL SOUNDS ALL QUADRANTS. BRUISING AROUND INCISION SITES. MINIMAL DRAINAGE PRESENT IN CENTER OF ABD DRESSING. PT A&O X3 ANSWERING ALL QUESTIONS APPROPRIATELY. PT SPEAKING TO SELF SELDOMLY. PT AFEBRILE. GOOD CERTIFIED MORTICIAN STRENGTH. EYES PERRLA. GENITALIA SWOLLEN. GLASS STAT LOCK ON RIGHT UPPER THIGH. PT CURRENNTLY RATING PAIN 8/10 IN ABD RADIATING TO MID-BACK DESCRIBED SHARP AND WORSE WHEN MOVING. PT ON 2L NC SPO2 98%, SINUS TACHYCARDIA AT 110, RESP RATE 26, BP 133/93.
--- NOTE | 2018-08-10 22:22 | NUR ---
PT PROVIDED BED BATH. POSTERIOR OF PT SHOWED NO SIGNS OF BREAKDOWN. PT ABLE TO TURN INDEPENDENTLY. PERICARE ASSISTED, PT UNABLE TO REACH PROBLEM AREAS. PERINEAL AREA IS SWOLEN AND WHITE CHUNKY DISCHARGE.
[2018-08-11] VITALS (784 sets, daily range): BP systolic 123–143; BP diastolic 77–102; PULSE 101–113; TEMP 97.7–99; O2SAT 42–100
[2018-08-11 05:15] LABS: MEAN CELL VOLUME 103 fl (80.0-100.0); MEAN CORPUSCULAR HGB CONC 34 g/dl (33.0-37.0); MEAN PLATELET VOLUME 11.2 fl (7.4-10.4); PLATELET COUNT 595 K/mm3 (130-400); RED BLOOD COUNT 2.25 M/mm3 (4.10-5.30); REDCELL DISTRIBUTION WIDTH-CV 15.2 % (11.5-14.5)
[2018-08-11 05:17] LABS: HEMATOCRIT 23.1 % (37.0-47.0); HEMOGLOBIN 7.9 g/dl (12.5-16.0); MEAN CORPUSCULAR HEMOGLOBIN 35 pg (27.0-31.0)
[2018-08-11 05:24] LABS: INR 1.7 (0.8-3.0); PROTHROMBIN TIME 19.1 SECONDS (9.7-12.8)
[2018-08-11 05:51] LABS: BAND 19 % (0-10); EOSINOPHIL 2 % (0-4); LYMPHOCYTE 7 % (20.0-51.0); NEUTROPHILS 65 % (42.0-75.2); PLATELET ESTIMATE INCREASED (NORMAL)
[2018-08-11 05:52] LABS: ANISOCYTOSIS 1+; HYPERSEGMENTED POLYS PRESENT
[2018-08-11 05:53] LABS: TARGET CELLS 1+
[2018-08-11 06:06] LABS: ALBUMIN 2.1 gm/dL (3.5-5.0); BILIRUBIN,TOTAL 0.7 mg/dL (0.0-1.0); CALCIUM 7.8 mg/dL (8.4-10.2); CREATININE, serum 0.42 mg/dL (0.52-1.25); MAGNESIUM 2.1 mg/dL (1.6-2.3); PHOSPHOROUS 4.1 mg/dL (2.5-4.5)
[2018-08-11 06:13] LABS: POTASSIUM 4.6 mmol/L (3.4-5.0)
--- NOTE | 2018-08-11 07:30 | NUR ---
Bedside report received from NATI Victor.
--- NOTE | 2018-08-11 08:00 | NUR ---
Assessment completed. Dr Low at bedside to see pt. Pt remains on BEHAVIORAL HEALTH SPECIALIST morphine for pain control. Morphine basal rate increased to 1.75mg per Dr Low's orders. Verified with NATI Victor.
--- NOTE | 2018-08-11 09:00 | NUR ---
US at bedside for paracentesis.
--- NOTE | 2018-08-11 09:30 | NUR ---
700cc out from paracentesis. Pt tolerated well. LLQ incision sutured and bandaid placed over it. VSS.
--- NOTE | 2018-08-11 12:00 | NUR ---
Pt's talking with visitors at bedside. Remains on MANAGER FRENCH morphine for pain control. States pain is tolerable. c/o some nausea. NGT still clamped. Checked residuals with 75cc of green drainage out. NGT clamped at this time. Will monitor.
[2018-08-11 12:27] LABS: PERITONEAL -POLYMORPHONUCLEAR 90.2 % (0-25); PERITONEAL FLUID RBC 4000 /mm3 (0-0)
--- NOTE | 2018-08-11 15:36 | NUR ---
Pt having some nausea. checked NGT residuals, 130cc out. NGT to LIs with green drainage out. Pt states she feels better. Friends at bedside. Call light in reach.
--- NOTE | 2018-08-11 19:00 | NUR ---
Bedside report recieved from NATI Zuniga. Patient anxious and laying in bed at this time. WOOL BRUSHER settings reviewed and confirmed to ordered in SEP. Patient reinforcement of WOOL BRUSHER use provided with understanding verbalized. Midline abdominal incision with moderate drainage noted. Lap sites CDI with edges well approximated. Paracentecis site to RLQ with bandaid in place CDI. Bed in low and locked position, call light and WOOL BRUSHER button within reach, rails up x3 and bed alarm armed. Care assumed.
--- NOTE | 2018-08-11 19:00 | NUR ---
Report given to NATI Zuniga.
--- NOTE | 2018-08-11 22:10 | NUR ---
Residual from NG is 50ml at this time. NG re-clamped.
--- NOTE | 2018-08-11 22:23 | NUR ---
Patient with increased artifact to cardiac rhythm, and SpO2 waveform, PUNCH OPERATOR alarms. Upon entering room to assess patient is noted to be attempting to climb from foot of bed. She is disoriented at this time and does not recall where she is. Reorientation provided and accepted. Patient is returned to bed and positioned for comfort. Abdominal incisions remain intact and without complication. EtCO2 nasal cannula is replaced and O2 increased to 3L for O2 saturations <90 with correlating waveform and noted tachypnea. NG tube remains at 65cm with sercuring device in place. PICC line without complication. Patient had removed socks which are replaced. Denies further needs at this time. Sensitivity of bed alarm increased. Will continue to monitor.
--- NOTE | 2018-08-11 23:56 | NUR ---
Patient continues to pick and pull at monitor cables, NC, and NG. She is frequently reoriented and attempts are made to conceal lines and tubes as possible.
[2018-08-12] VITALS (1145 sets, daily range): BP systolic 119–141; BP diastolic 87–92; PULSE 97–114; TEMP 97.6–98.7; O2SAT 32–100
--- NOTE | 2018-08-12 00:20 | NUR ---
Patient resting with eyes closed in bed. Finger O2 probe used with saturation reading >92%. Patient has displaced forehead probe. Will continue to monitor.
--- NOTE | 2018-08-12 00:30 | NUR ---
Patient awake and restless again. Pulling at lines and tubes. Reoriented. States accurately person and place. Cannot accurately recount history of stay. POC and procedures are reviewed. SpO2 probe replaced to fore head. NG at 62cm but with positive gastric auscultation and return. Securement device remains in place. Care ongoing.
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
--- NOTE | 2018-08-12 01:23 | NUR ---
This RN is at patient bedside with attempted reorientation. Patient states she does not believe what I am telling her. Patient uses personal cell phone to call with no answer recieved. She then calls daughter, Lizzette and states "Lizzette, come up here now. Get dad, get everybody. Get Davey. Do you hear me? I don't know what's going on but I need everybody here right now." This RN asks to speak with daughter and patient refuses. This RN calls patient Marcelo. is updated to patient's increased confusion/delerium. He is placed on the phone with his and provides reassurance. states he will be in shortly.
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
--- NOTE | 2018-08-12 01:45 | NUR ---
Patient , Marcelo arrives. She expresses relief to see him. Patient allows exam of abdomen at this time without complications noted. is updated to POC and education provided on ICU delirium. Understanding verbalized. is provided recliner and sits at patient side of bed to provide comfort and continued orientation. Patient and family deny further needs at this time. Will continue to monitor.
--- NOTE | 2018-08-12 01:50 | NUR ---
Residual from NG is 52ml at this time. Re-clamped and will continue to monitor.
--- NOTE | 2018-08-12 02:59 | NUR ---
TALKED TO RN ABOUT PT AND CHANGED SAT PROBE TO FOREHEAD TO VERIFY GOOD SAT. SHE SAID PT OK FOR NOW WE MAY CONSIDER ABG'S LATER NOT NOW THOUGH.
--- NOTE | 2018-08-12 03:05 | NUR ---
Patient sleeping lightly between disturbances with at bedside. Oriented to self but incorrectly relays place, time, or situation. States "I'm in the . ICU wing. 186." Can identify with ease. Rates pain 4/10. Abdomen is increasingly distended and tender. Care ongoing.
--- NOTE | 2018-08-12 05:00 | NUR ---
Patient continues to rest calmly with at bedside. AM labs drawn as ordered. Care ongoing.
[2018-08-12 05:04] LABS: MEAN CORPUSCULAR HGB CONC 35 g/dl (33.0-37.0); MEAN PLATELET VOLUME 10.7 fl (7.4-10.4); RED BLOOD COUNT 2.29 M/mm3 (4.10-5.30); REDCELL DISTRIBUTION WIDTH-CV 14.4 % (11.5-14.5)
[2018-08-12 05:18] LABS: HEMOGLOBIN 7.7 g/dl (12.5-16.0); MEAN CELL VOLUME 96 fl (80.0-100.0); MEAN CORPUSCULAR HEMOGLOBIN 34 pg (27.0-31.0); PLATELET COUNT 700 K/mm3 (130-400)
[2018-08-12 05:24] LABS: ALBUMIN 2.1 gm/dL (3.5-5.0); BILIRUBIN,TOTAL 0.7 mg/dL (0.0-1.0); CREATININE, serum 0.4 mg/dL (0.52-1.25); MAGNESIUM 2.2 mg/dL (1.6-2.3); PHOSPHOROUS 4.6 mg/dL (2.5-4.5); POTASSIUM 4.2 mmol/L (3.4-5.0); TOTAL PROTEIN 5.1 gm/dL (6.4-8.2)
--- NOTE | 2018-08-12 06:03 | NUR ---
Patient eager to get out of bed at this time. She is assisted by staff x2 to bedside recliner with shuffling gait. She manages pain appropriately with FLORAL DESIGN TEACHER. Patient is still somewhat confused but orientation is much improved. remains at bedside.
[2018-08-12 07:04] LABS: BAND 27 % (0-10); EOSINOPHIL 2 % (0-4); LYMPHOCYTE 5 % (20.0-51.0); METAMYELOCYTE 1 % (0-0); NEUTROPHILS 56 % (42.0-75.2)
[2018-08-12 07:05] LABS: PLATELET ESTIMATE INCREASED (NORMAL)
--- NOTE | 2018-08-12 07:43 | NUR ---
Bedside report given to NATI Leonard. Patient and participate and all questions asked are answered. Patient expresses desire to return to bed and is assisted to do so. Care completed at this time.
--- NOTE | 2018-08-12 08:00 | NUR ---
PT ALERT AND ORIENTED X4 BUT HAS INTERMITTENT EPISODES OF CONFUSION. PT SEEMS HYPERACTIVE, RESTLESS, AND IMPULSIVE. PT ALSO HAVING INTERMITTENT DELUSIONS AND HALLUCINATIONS. PT'S LUNGS CLEAR TO RIGHT UPPER AND MIDDLE LOBES AND LEFT LUNG MCMILLAN. CRACKLES NOTED TO RIGHT LOWER LOBE. PT'S ABDOMEN DISTENDED AND SLIGHTLY FIRM. ABD TENDER UPON PALPATION. UNABLE TO HEAR BOWEL SOUNDS AT THIS TIME. PT HAS MIDLINE ABD DRESSING WITH SOME SEROUS DRAINAGE NOTED TO MID INCISION AREA. PT HAS 4 LAP SITES, SECURED WITH SURGICAL GLUE AND BANDAID IN PLACE TO LEFT LOWER ABD FROM PREVIOUS PARACENTESIS SITE. PT HAS NGT PRESENT THAT IS CURRENTLY CLAMPED. PT HAS GLASS IN PLACE WITH CLEAR, YELLOW URINE. PT HAS 1+ GENERALIZED EDEMA.
--- NOTE | 2018-08-12 08:30 | NUR ---
NGT REMOVED PER DR JUNIOR'S ORDER. PT TOLERATED WELL.
--- NOTE | 2018-08-12 14:37 | NUR ---
LAVELL met with the patient and patient's friends to review discharge plan. The patient reports that she still plans to return home. The patient reports that she had a difficult night and had been confused, due to being in the hospital for so long and her ICU room being overwhelming. She states that she is eager to switch to a room with a window or to be transferred back to the surgical floor. LAVELL provided support and will continue to follow.
--- NOTE | 2018-08-12 15:00 | NUR ---
PT GIVEN ORAL CONTRAST FOR FOLLOWUP CT BY REPORT CLERK.
[2018-08-12 15:48] LABS: 12 HR URINE TOTAL VOLUME 2.1 L
--- NOTE | 2018-08-12 20:45 | NUR ---
PT A&O X2. PT CONFUSED TO WHERE SHE IS, BUT IS CORRECTED. PT HS ENGINEERING LABORATORY TECHNICIAN MEMORY. PT INCORRECTLY GAVE LAST NAME OF CURRENT PRESIDENT, HER LOCATION, AND ANSWERED INCORRECTLY "IS ONE GREATER THAN 2". SWELLING PRESENT IN BILAT LEGS AND GENITALIA. HOWEVER, DECREASED IN UPPER LEGS AND GENITALIA WHEN PT WAS ASSIGNED TO ME LAST. PT TEMP 97.8F. 119/87, 111 HR, 28 RESP, 97% SP02. PT CURRENTLY ARGUING WITH ABOUT WANTING TO GO HOME TOIGHT.
--- NOTE | 2018-08-12 22:25 | NUR ---
PTS INFORMS NURSE THAT PT DRINKS 2-4 ALCOHOLIC DRINKS/NIGHT 6-7 NIGHTS/WK AND IS CONCERNED FOR PT HAVING WITHDRAWL FROM ALCOHOL.
--- NOTE | 2018-08-12 22:40 | NUR ---
ABD BADAGE IS THE SAME THAT WAS APPLIED BY NATI DAWSON SATURDAY EVENING SHIFT. THE BADAGE WAS SATURATED WITH WHITE PUSS-LIKE DRAINAGE. THE OLD BADAGE WAS REMOVED, EXCESS DRAINAGE REMOVED BY WHIPING OUTWARDS FROM WOUND WITH CLEAN GAUZE EACH SWIPE. CHLORAPREP SWABS USED TO CLEAN OUTSIDE EDGES OF INCISION, NOT TOUCHING INCISION SITE, SWABS SWIPPED OUTWARDS FROM WOUND, USING NEW SWAB EACH SWIPE. NEW TELFA AND GUASE APPLIED TO INCISION SITE. PT CONTINUES TO BE CONFUSED, REPEATEDLY ASKING "WHAT ARE WE GOING TO DO ABOUT THE THING BETWEEN MY LEGS" REFERRING TO THE GLASS CATHETER. PT REASSURED AND REDIRECTED TOWARD THE REASON FOR HER STAY IN THE HOSPITAL. DUE TO PT DELUSIONS AND INCLIMENT WEATHER, MARKETING PROGRAMS MANAGER APPROVED PTS SPOUSE TO SPEND THE PM TO HELP KEEP HER CALM. PTS CURRENT PAIN 2/10. [facility] PROVIDED FOR PT.
[2018-08-13] VITALS (1014 sets, daily range): BP systolic 122–147; BP diastolic 77–106; PULSE 90–113; TEMP 98.1–99.3; O2SAT 63–100
--- NOTE | 2018-08-13 00:30 | NUR ---
PT TMEP 99.3F. ABD DRESSING DRY INTACT, NO VISIBLE DRAINAGE.
--- NOTE | 2018-08-13 02:10 | NUR ---
PT WOKE-UP CONFUSED. PT REDIRECTED. MOVED UP IN BED. [facility] PROVIDED.
--- NOTE | 2018-08-13 04:30 | NUR ---
0315: NICKEL SIZED OOZING/DRAINAGE, SEROSANGUINOUS/PUSS-LIKE IN COLOR ON MIDDLE OF DRESSING. 0430: PT STATES SHE FELT A "POP" IN ABD. ABD ASSESSED, LOWER HALF OF ABD DRESSING SATURATED WITH SEROSANGUINOUS AND PUSS-LIKE DRAINAGE. BANDAGE REINFORCED WITH ADDITIONAL GAUZE. BOWEL SOUNDS AUDIBLE IN ALL QUADRANTS.
[2018-08-13 05:20] LABS: MEAN CELL VOLUME 98 fl (80.0-100.0); MEAN CORPUSCULAR HGB CONC 34 g/dl (33.0-37.0); MEAN PLATELET VOLUME 10.5 fl (7.4-10.4); RED BLOOD COUNT 2.43 M/mm3 (4.10-5.30); REDCELL DISTRIBUTION WIDTH-CV 14.6 % (11.5-14.5)
[2018-08-13 05:23] LABS: HEMATOCRIT 23.9 % (37.0-47.0); HEMOGLOBIN 8.1 g/dl (12.5-16.0); MEAN CORPUSCULAR HEMOGLOBIN 33 pg (27.0-31.0); PLATELET COUNT 903 K/mm3 (130-400)
[2018-08-13 05:35] LABS: ALBUMIN 2.4 gm/dL (3.5-5.0); BILIRUBIN,TOTAL 0.8 mg/dL (0.0-1.0); CALCIUM 8.1 mg/dL (8.4-10.2); CREATININE, serum 0.42 mg/dL (0.52-1.25); MAGNESIUM 2.2 mg/dL (1.6-2.3); PHOSPHOROUS 4.8 mg/dL (2.5-4.5); POTASSIUM 4.1 mmol/L (3.4-5.0); TOTAL PROTEIN 5.7 gm/dL (6.4-8.2)
[2018-08-13 05:43] LABS: PRE ALBUMIN 7.2 mg/dL (17.6-36.0)
[2018-08-13 06:29] LABS: BAND 9 % (0-10); EOSINOPHIL 1 % (0-4); LYMPHOCYTE 5 % (20.0-51.0); NEUTROPHILS 82 % (42.0-75.2); PLATELET ESTIMATE INCREASED (NORMAL)
[2018-08-13 06:30] LABS: STOMATOCYTE 3+; TARGET CELLS 1+
--- NOTE | 2018-08-13 06:30 | NUR ---
PT C/O RIGHT SIDED ABD GAS PAIN INTERMITTENTLY RATED 7/10.
--- NOTE | 2018-08-13 08:30 | NUR ---
PICC intact right upper arm. With sterile technique right upper arm PICC dressing change done with insertion site cleansed with ChloraPrep 1, chlorhexidine impregnated disc applied, skin prep, StatLock, and Tegaderm applied. No signs or symptoms of IV complications noted. No concerns voiced. Freeman to protect catheter.
--- NOTE | 2018-08-13 08:34 | NUR ---
Pt awake and alert having occasional confusion. Marcelo at bedside. Ambulated from bed to bedside commode and had small amount of liquid dark brown colored stool. MD Devante in room speaking with pt and family. Pt HR elevated from basline of 100 to 140s during ambulation and bowel movement. HR returned to baseline after pt was moved from commode to recliner.
--- NOTE | 2018-08-13 10:24 | NUR ---
Pt taken in wheelchair to courtyard window to view scenery, expose to sunlight, and see sights out of ICU room/unit. Pt transported with IV pumps and transport monitor. Accompainied by and father&lepzar-ce-ddr. Pt did become nauseous briefly, but resolved without intervention within 1min. Pt off unit for aprox. 20min. Upon arrival back to ICU room pt sat on commode, voided, then transfered back to bed. Pt complaining of 5-6/10 abdominal pain similar to pain she has been having - pt pushed ROLL PLUGGER button - and is now resting with eyes closed and call light within reach.
--- NOTE | 2018-08-13 15:55 | NUR ---
MD Bonita (psych) at bedside assessing pt with present. After assessment pt's 2 children now present. Pt repositioned with knees elevated jorge DEL RIO at 35degrees, she states "this is the most comfortable I have been since I've been here".
--- NOTE | 2018-08-13 16:00 | NUR ---
Midline incision dressing changed d/t serous/straw colored drainage, MD Viral present and has seen dressing and incision. Multiple visitors have been visiting two at a time.
--- NOTE | 2018-08-13 19:10 | NUR ---
Pt report received by Martinez Lorenzo RN. Pt is resting in bed at this time with spouse at bedside.
--- NOTE | 2018-08-13 21:00 | NUR ---
Pt assessment complete. Pt alert and oriented X4. Pt was aware of seeing this nurse with prior cares on other nights when nurse walked into the room. Requested to sit in a recliner. Pts spouse is at bedside and reported that he will remain at bedside until pt is back in bed. Pt talks very fast when conversing with staff. Standing X1 assist with a rocking motion, on the count of 3 will stand up with no loss of balance noted. Hand art objects salesperson are strong bilaterally. Bilateral lower extremity edema present, recorded in assessment. Corrective eye wear in place with personal belongings near pt. Pts spouse stated plans to go home this evening and will be back before 0800 after getting the kids to bed although notified staff to call if needed.
[2018-08-14] VITALS (172 sets, daily range): BP systolic 122–146; BP diastolic 79–95; PULSE 100–133; TEMP 98–100; O2SAT 45–100
--- NOTE | 2018-08-14 | NUR ---
Pt assessment complete. Pt midline incision showed drainage present distally. Drainage is serous/ straw colored in nature. Moderate amount noted. Pt tolerated dressing change. Sutures mostly intact with one area with dehicence noted with suture not fully intact. Multiple areas of dehicence present with prior michael post procedure removed. Pt continues to have continued hallucinations with restlessness. Has been noted to send the bed alarm off, with X2 occurances of the pt reporting "I crawled" over the bedrail. Pt has had liquid stools and will notify staff of need to use the restroom. Staff has had to remind pt that there is a crowder catheter in place. Pt has refused Ativan at this time.
--- NOTE | 2018-08-14 04:30 | NUR ---
Pt was noted to take naps for no longer than 15 minutes in length between the last 4 hours. Increased hallucinations with pt calling out Maximino's name, attempting to get out of bed continuously with bed alarm going off with each pt attempt. Pt will rip off blankets although will repeatedly ask staff to "tuck me back in". Will sit up, report "feeling better about that" so "now I can finally go back to sleep." Pt has requested nurse "give me something to just knock me out." Per pt report from previous staff that has cared for this pt, pt has not had a favorable reaction to PRN Ativan. EICU contacted for other options.
--- NOTE | 2018-08-14 06:30 | NUR ---
No improvement in pt state following PRN Haldol orders.
--- NOTE | 2018-08-14 07:30 | NUR ---
Report recieved from Lety DAMIAN at this time. Patient in bed and very restless. Knows she's in the hospital but continues to have auditory and visual hallucinations. Rambing speech. Able to redirect for short times. Alarms on, awaiting 's arrival.
--- NOTE | 2018-08-14 07:30 | NUR ---
Report recieved from Kayleigh DAMIAN. Patient resting in bed with eyes closed, minimal response when stimulated.
--- NOTE | 2018-08-14 07:30 | NUR ---
Report provided to Jessica Engel RN. Pt continues to be restless in bed at this time with noticed continued hallucinations due to pt continuously talking.
--- NOTE | 2018-08-14 07:45 | NUR ---
Up to commode, loose stool. Returns to bed on own power. here. Patient very confused, rambling speech, constant picking at blankets, IV lines, pillows. Able to redirect for only short periods of time. Knows where she is, knows date, know , but continues with auditory and visual hallucinations. Dr. Low here, orders recieved
--- NOTE | 2018-08-14 09:58 | NUR ---
Spoke with about limiting visitors in room to help decrease sitmulation. very open to suggestions. Postitioned in bed, states comfortable. Bed alarms on and rails padded. Call light at side.
--- NOTE | 2018-08-14 10:30 | NUR ---
only at bedside. Lights off, TV off, door and privacy curtain closed. All monitors except ECG off at this time to help decrease stimuli. Will monitor closely for needs or changes.
--- NOTE | 2018-08-14 11:30 | NUR ---
Has rested well last hour-hour and half. asks about having friend sit with patient for a while this afternoon. Encouraged to keep limiting number of people in room, but ok with friend sitting. If increases restlessness, then we will revisit it then but ok to try. Has emesis approx 50ml, dark green/black. Denies nausea, "it just came up". Assessment and vitals done at this time. Dr. Diaz aware, makes patient NPO at this time and message left for Dr. Stratton.
[2018-08-14 13:12] LABS: MEAN CELL VOLUME 101 fl (80.0-100.0); MEAN CORPUSCULAR HGB CONC 33 g/dl (33.0-37.0); MEAN PLATELET VOLUME 10.5 fl (7.4-10.4); PLATELET COUNT 824 K/mm3 (130-400); RED BLOOD COUNT 2.08 M/mm3 (4.10-5.30); REDCELL DISTRIBUTION WIDTH-CV 14.7 % (11.5-14.5)
[2018-08-14 13:14] LABS: HEMATOCRIT 21.1 % (37.0-47.0); MEAN CORPUSCULAR HEMOGLOBIN 34 pg (27.0-31.0)
[2018-08-14 13:45] LABS: BAND 27 % (0-10); EOSINOPHIL 1 % (0-4); LYMPHOCYTE 5 % (20.0-51.0); NEUTROPHILS 62 % (42.0-75.2); PLATELET ESTIMATE INCREASED (NORMAL)
[2018-08-14 13:47] LABS: TARGET CELLS 1+
--- NOTE | 2018-08-14 16:00 | NUR ---
Dr. Stratton here for rounds. Orders recieved. Ok with PO intake. Patient more appropriate this evening, less restless, no hallucinations noted at this time. and friend sitting at bedside visiting with patient and patient tolerates without and difficulty at this time. Talked with about his concerns of patient being alone through out the night. Ok'd for patient to have friend sleep at bedside to help with confusion/delirum. Would still like to limit stimulation, but will see how it helps.
--- NOTE | 2018-08-14 19:05 | NUR ---
Received bedside report from NATI Lopez. Patient care received.
--- NOTE | 2018-08-14 19:20 | NUR ---
Bedside report given to Jessika DAMIAN. at bedside for report. TPN verified. Alarms on on bed, call light at side
--- NOTE | 2018-08-14 19:30 | NUR ---
at bedside; all questions and concerns addressed. Assessment complete. Patient able to answer simple questions and follow simple commands appropriately. However, patient can also be heard moaning audibly and mumbling to herself frequently. Denies experiencing any pain. Repositioned for comfort. Attemping to reduce unecessary stimuli and cluster care. Will continue to monitor.
--- NOTE | 2018-08-14 19:30 | NUR ---
Patient had episode of loose incontinent stool of a dark green color. Assisted up to bedside commode. Linens changed and patient cleansed with vidal-wipes.
[2018-08-15] VITALS (509 sets, daily range): BP systolic 111–135; BP diastolic 69–93; PULSE 108–139; TEMP 97.6–99.8; O2SAT 63–100
--- NOTE | 2018-08-15 01:00 | NUR ---
Patient continues to be observd mumbling to herself and making jerking motions with hands when awake. However, patient able to answer focused questions appropriately. Patient's friend at bedside and pt. appears to recognize her. Will continue to monitor.
--- NOTE | 2018-08-15 05:32 | NUR ---
Notified [facility] that patient's HGB is 6.8. Requested to obtain a new blood consent as the one on file is 10 days old. Patient had been alert and able to answer questions appropriately and follow commands. Alert to time and place.
--- NOTE | 2018-08-15 05:51 | NUR ---
Obtained phone consent for blood transfusion from . Second RN available to confirm consent.
[2018-08-15 05:52] LABS: HEMATOCRIT 20.7 % (37.0-47.0); HEMOGLOBIN 7.1 g/dl (12.5-16.0); MEAN CELL VOLUME 99 fl (80.0-100.0); MEAN CORPUSCULAR HEMOGLOBIN 34 pg (27.0-31.0); MEAN CORPUSCULAR HGB CONC 34 g/dl (33.0-37.0); MEAN PLATELET VOLUME 10.1 fl (7.4-10.4); PLATELET COUNT 801 K/mm3 (130-400); RED BLOOD COUNT 2.09 M/mm3 (4.10-5.30); REDCELL DISTRIBUTION WIDTH-CV 14.2 % (11.5-14.5)
[2018-08-15 06:02] LABS: CALCIUM 7.4 mg/dL (8.4-10.2); CREATININE, serum 0.43 mg/dL (0.52-1.25); MAGNESIUM 2.1 mg/dL (1.6-2.3); PHOSPHOROUS 2.8 mg/dL (2.5-4.5); POTASSIUM 3.5 mmol/L (3.4-5.0)
[2018-08-15 06:12] LABS: BAND 25 % (0-10); EOSINOPHIL 2 % (0-4); LYMPHOCYTE 7 % (20.0-51.0); NEUTROPHILS 65 % (42.0-75.2); PLATELET ESTIMATE INCREASED (NORMAL)
[2018-08-15 06:14] LABS: ANISOCYTOSIS 1+; POLYCHROMASIA 1+
--- NOTE | 2018-08-15 12:36 | NUR ---
First visit from the fence installer foreman. No needs right now.
--- NOTE | 2018-08-15 19:10 | NUR ---
Received bedside report from NATI Lopez. Patient care received. Family at bedside. All questions and concerns addressed.
--- NOTE | 2018-08-15 19:39 | NUR ---
Bedside report given to Jessika DAMIAN. Family at bedside for report, no questions or concerns at this time.
--- NOTE | 2018-08-15 20:33 | NUR ---
Assessment complete. Patient still has occasional facial tics and mumbled speech, however is alert and oriented able to follow all commands appropriately. Reports some abdominal pain with palpation, but denies any need for pain medication at this time. Assisted up to bathroom; was continent of medium amount of dark green/brown liquid stool.
[2018-08-16] VITALS (1159 sets, daily range): BP systolic 121–135; BP diastolic 69–88; PULSE 105–119; TEMP 98.3–99.1; O2SAT 70–100
--- NOTE | 2018-08-16 01:10 | NUR ---
Patient reporting abdominal pain 10/29. Requesting Tylenol; reports that this has been effective at managing pain. Medication administered.
--- NOTE | 2018-08-16 04:40 | NUR ---
spa technician here to draw am labs. Patient reported resting well. Alert and oriented at this time. Repositioned to a more comfortable position and provided fresh ice water. No further concerns at this time.
[2018-08-16 05:09] LABS: BASO # 0.1 (0.0-0.2); BASO % 0.4 % (0.0-2.0); EOS # 0.3 (0.0-0.7); GRAN # 12.3 (1.4-6.5); GRAN % 78.5 % (42.2-75.2); LYMPH # 1.4 (1.2-3.4); MEAN CELL VOLUME 96 fl (80.0-100.0); MEAN CORPUSCULAR HGB CONC 34 g/dl (33.0-37.0); MONO # 1.4 (0.1-0.6); MONO % 8.7 % (1.7-9.3); PLATELET COUNT 780 K/mm3 (130-400); RED BLOOD COUNT 2.46 M/mm3 (4.10-5.30); REDCELL DISTRIBUTION WIDTH-CV 15.3 % (11.5-14.5)
[2018-08-16 05:13] LABS: HEMATOCRIT 23.6 % (37.0-47.0); HEMOGLOBIN 7.9 g/dl (12.5-16.0); MEAN CORPUSCULAR HEMOGLOBIN 32 pg (27.0-31.0)
[2018-08-16 07:21] LABS: CALCIUM 7.7 mg/dL (8.4-10.2); CREATININE, serum 0.44 mg/dL (0.52-1.25); MAGNESIUM 2.1 mg/dL (1.6-2.3); POTASSIUM 3.6 mmol/L (3.4-5.0)
--- NOTE | 2018-08-16 07:44 | NUR ---
Bedside report given to NATI Zuniga. Patient care transfered.
--- NOTE | 2018-08-16 08:00 | NUR ---
INITIAL ASSESSMENT COMPLETED. PATIENT AWAKE AND ALERT. DENIES ANY PAIN OR DISCOMFORT AT THIS TIME. SHE STATES THE ZOFRAN IS HELPING WITH HER NAUSEA. SHE ATTEMPTED TO EAT BREAKFAST, HOWEVER SHE COULD ONLY EAT A FEW BITES AND SHE FELT IT DIDN'T SIT WELL.
--- NOTE | 2018-08-16 11:30 | NUR ---
DR. AKERS AND DR. JUNIOR WERE BY TO SEE PATIENT. ORDERS RECEIVED TO D/C GLASS CATHETER. THEY ALSO STATE THEY WOULD LIKE HER TO STAY IN THE ICU UNTIL SATURDAY AND THEN MOST LIKELY GET HER TO THE SURGICAL UNIT ON SATURDAY.
--- NOTE | 2018-08-16 12:45 | NUR ---
PATIENT WAS ABLE TO AMBULATE IN HALLS. SHE WALKED APPROXIMATELY 100 FT. SHE BECAME TIRED RATHER QUICKLY AND ALSO SHORT OF BREATH. SHE TOLERATED WELL OVERALL AND STATED SHE LIKED GETTING OUT OF HER ROOM. WALKED WITH US. PATIENT WOULD LIKE TO TAKE A NAP AT THIS TIME. SHE HAS VOIDED 2 TIMES SINCE HAVING THE CATHETER.
--- NOTE | 2018-08-16 16:34 | NUR ---
PATIENT SITTING IN RECLINER AT THIS TIME. SHE WAS ABLE TO EAT SEVERAL SMALL BITES OF HER FOOD. SHE STATES THAT EATING JUST FEELS LIKE A CHORE AND NOTHING SOUNDS GOOD. SHE HAS BEEN ABLE TO AMBULATE TO THE TOILET WITHOUT DIFFICULTY MULTIPLE TIMES THIS AFTERNOON.
--- NOTE | 2018-08-16 19:00 | NUR ---
Received report from NATI Zuniga. Patient care transfered. at bedside; no concerns at this time.
--- NOTE | 2018-08-16 19:11 | NUR ---
REPORT GIVEN TO NATI MINAYA.
--- NOTE | 2018-08-16 19:30 | NUR ---
Moderate amount of yellowish-orange drainage noted on bottom of abdominal bandage; Michael intact, no redness or swelling noted. Sterile dressing change performed at this time.
--- NOTE | 2018-08-16 20:00 | NUR ---
Patient alert and oriented, although sill has some mumbled rapid speech at times. Will continue to monitor.
[2018-08-17] VITALS (600 sets, daily range): BP systolic 128–147; BP diastolic 80–91; PULSE 106–118; TEMP 97.9–98.7; O2SAT 69–100
--- NOTE | 2018-08-17 00:50 | NUR ---
Reporting nausea; PRN zofran administered. Requested Tylenol. Will wait for nausea to pass then will administer the medication. Up to bathroom at this time with stand by assist only. No further issues or complaints at this time.
--- NOTE | 2018-08-17 03:50 | NUR ---
Patient complaining of heartburn. Reports heartburn is a regular occurance for her. obtained for PRN Tums. Hosptitalist notified that patient on TPN; ok to receive medication.
--- NOTE | 2018-08-17 05:30 | NUR ---
In patient's room to assist with toileting. Nurse noted that patient's speech was markedly more mumbled and rapid. Appeared to be mumbling to herself. When asked focused questions able to respond appropriately with some hesitation about the year. Reported not sleeping well tonight as having to get up frequently to urinate since removing crowder. Assisted up the to the bathroom. Able to ambulate as per usual. Will continue to monitor.
[2018-08-17 06:19] LABS: MEAN CELL VOLUME 97 fl (80.0-100.0); MEAN CORPUSCULAR HGB CONC 34 g/dl (33.0-37.0); PLATELET COUNT 713 K/mm3 (130-400); RED BLOOD COUNT 2.43 M/mm3 (4.10-5.30); REDCELL DISTRIBUTION WIDTH-CV 15.1 % (11.5-14.5)
[2018-08-17 06:21] LABS: HEMATOCRIT 23.6 % (37.0-47.0); HEMOGLOBIN 7.9 g/dl (12.5-16.0); MEAN CORPUSCULAR HEMOGLOBIN 33 pg (27.0-31.0)
[2018-08-17 06:38] LABS: CALCIUM 7.9 mg/dL (8.4-10.2); CREATININE, serum 0.41 mg/dL (0.52-1.25)
[2018-08-17 06:45] LABS: BAND 15 % (0-10); LYMPHOCYTE 7 % (20.0-51.0); METAMYELOCYTE 1 % (0-0); NEUTROPHILS 70 % (42.0-75.2); PLATELET ESTIMATE INCREASED (NORMAL)
[2018-08-17 06:46] LABS: STOMATOCYTE 2+
--- NOTE | 2018-08-17 08:00 | NUR ---
Patient awake in room. She is very confused and anxious at this time. Friend at bedside trying to help. She continues to grab and pull at things. Her speech is often uncomprehensable.
--- NOTE | 2018-08-17 09:30 | NUR ---
DR. AKERS AT BEDSIDE TO SEE PATIENT.
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
--- NOTE | 2018-08-17 19:00 | NUR ---
Report given to NATI Rosen.
--- NOTE | 2018-08-17 19:45 | NUR ---
Assessment complete; family at bedside. No complaints or concerns at this time.
[2018-08-18] VITALS (610 sets, daily range): BP systolic 121–142; BP diastolic 75–89; PULSE 109–118; TEMP 97.6–98.8; O2SAT 55–100
--- NOTE | 2018-08-18 04:45 | NUR ---
Patient resting in bed with eyes shut. Some twitching and mumbling in sleep noted. reports patient sleep soundly from approximately 01:30 to 3:30. Will continue to monitor.
[2018-08-18 05:17] LABS: MEAN CELL VOLUME 95 fl (80.0-100.0); MEAN CORPUSCULAR HGB CONC 34 g/dl (33.0-37.0); MEAN PLATELET VOLUME 10.2 fl (7.4-10.4); PLATELET COUNT 701 K/mm3 (130-400); RED BLOOD COUNT 2.55 M/mm3 (4.10-5.30); REDCELL DISTRIBUTION WIDTH-CV 14.9 % (11.5-14.5)
[2018-08-18 05:27] LABS: HEMATOCRIT 24.1 % (37.0-47.0); HEMOGLOBIN 8.2 g/dl (12.5-16.0); MEAN CORPUSCULAR HEMOGLOBIN 32 pg (27.0-31.0)
[2018-08-18 05:29] LABS: CALCIUM 8.1 mg/dL (8.4-10.2); CREATININE, serum 0.45 mg/dL (0.52-1.25); PHOSPHOROUS 4.1 mg/dL (2.5-4.5); POTASSIUM 3.9 mmol/L (3.4-5.0)
[2018-08-18 06:18] LABS: BAND 7 % (0-10); BASOPHIL 1 % (0-2); EOSINOPHIL 3 % (0-4); LYMPHOCYTE 8 % (20.0-51.0); METAMYELOCYTE 1 % (0-0); NEUTROPHILS 73 % (42.0-75.2)
[2018-08-18 06:20] LABS: HYPOCHROMIA 1+; PLATELET ESTIMATE INCREASED (NORMAL)
[2018-08-18 06:21] LABS: STOMATOCYTE 1+; TARGET CELLS 1+
--- NOTE | 2018-08-18 07:50 | NUR ---
Report received from NATI Rosen
--- NOTE | 2018-08-18 08:00 | NUR ---
Assessment completed. Pt up in chair. VSS. Midline abd incision dressing changed by NATI Rosen. [place] intact. small amt drainage with pus noted from incision site. No redness noted around incision site. Pt states pain is controlled with tylenol. States she gets nausea occasionally but okay right now. at bedside.
--- NOTE | 2018-08-18 09:00 | NUR ---
TPN restarted per orders in right upper arm PICC, red lumen.
--- NOTE | 2018-08-18 13:15 | NUR ---
Physical therapy at bedside with pt.
--- NOTE | 2018-08-18 15:25 | NUR ---
Report given to NATI Henriquez at 1512. Pt transferred to room 326 via wheelchair. NATI Henriquez at bedside and updated on pt status.
--- NOTE | 2018-08-18 15:38 | NUR ---
Pt arrived to [facility] 326 via wheelchair accompanied by Marcelo (). Assessment completed - states "she is behaving just like her normal regular self" also states he is "relieved she is acting like herself". Pt ambulated independently from wheelchair to bed without difficulty. Pt Alert and oriented to person, place, time, situation, current events, and family members. Pt up to shower with assistance from JR Ragsdale - midline incision dressing removed.
--- NOTE | 2018-08-18 20:30 | NUR ---
Pt. laying in bed with family at bedside. Pt. is A&OX3, assessment complete. PICC to rt. upper arm patent. Dressing to midline incision CDI. Pt. reports difficulty getting comfortable. Gave pt. more pillows and a warm moist pack to help. Pt. denies further needs at this time. Call light within reach.
[2018-08-19 03:51] VITALS: BP 126/80; PULSE 113; TEMP 98.6
[2018-08-19 05:56] LABS: MEAN CELL VOLUME 95 fl (80.0-100.0); MEAN CORPUSCULAR HGB CONC 34 g/dl (33.0-37.0); MEAN PLATELET VOLUME 10.2 fl (7.4-10.4); PLATELET COUNT 735 K/mm3 (130-400); RED BLOOD COUNT 2.53 M/mm3 (4.10-5.30); REDCELL DISTRIBUTION WIDTH-CV 14.9 % (11.5-14.5)
[2018-08-19 06:04] LABS: CALCIUM 8.3 mg/dL (8.4-10.2); CREATININE, serum 0.48 mg/dL (0.52-1.25); POTASSIUM 3.7 mmol/L (3.4-5.0)
--- NOTE | 2018-08-19 06:21 | NUR ---
Pt. slept well through the night. Pt. remains A&OX3. Dressing to midline incision changed this am. Pt. denies further needs, call light within reach.
[2018-08-19 06:37] LABS: HEMATOCRIT 24.1 % (37.0-47.0); HEMOGLOBIN 8.1 g/dl (12.5-16.0); MEAN CORPUSCULAR HEMOGLOBIN 32 pg (27.0-31.0)
--- NOTE | 2018-08-19 07:00 | NUR ---
Pt sleeping but AOx3 upon assessment. Call light within reach. No complaints of pain at this time. States "I had the best nights sleep since Renetta been here" and states she wishes to go back to sleep. [employer] called to report tachycardia, noted.
[2018-08-19 07:52] VITALS: BP 127/78; PULSE 114; TEMP 99.7
[2018-08-19 08:36] LABS: BAND 8 % (0-10); EOSINOPHIL 4 % (0-4); HYPOCHROMIA 1+; LYMPHOCYTE 7 % (20.0-51.0); METAMYELOCYTE 2 % (0-0); NEUTROPHILS 74 % (42.0-75.2); PLATELET ESTIMATE INCREASED (NORMAL)
--- NOTE | 2018-08-19 09:25 | NUR ---
On 08/08/18, Kelli with inpatient rehab met with patient and spouse to explore possible rehab post hopsitalization. Patient and spouse prefer to return home with outpatient therapies. Case management will continue to follow and assist as needed to secure a safe discharge plan.
[2018-08-19 11:51] VITALS: BP 120/80; PULSE 111; TEMP 97.7
--- NOTE | 2018-08-19 12:20 | NUR ---
Pt up to chair, visitors at bedside, talking about what she would like to order for lunch.
[2018-08-19 15:47] VITALS: BP 116/75; PULSE 120; TEMP 98.3
--- NOTE | 2018-08-19 16:00 | NUR ---
Midline incision dressing changed. Straw colored drainage noted. Gauze then ABD, secured with paper tape.
--- NOTE | 2018-08-19 17:00 | NUR ---
Pt unable to find comfortable position to rest. Pt now up out of bed to chair. Spouse and 2 children at bedside.
[2018-08-19 20:00] VITALS: BP 129/73; PULSE 110; TEMP 98.9
--- NOTE | 2018-08-19 20:52 | NUR ---
Patient up in BR, incision leaking, assisted to bed. Dressing to midline incision removed. Has leo intact with purulent drainage leaking from middle and lower incision. Replaced dressing with gauze and an ABD. Abdomen distended, soft with active bowel sounds. Patient had loose stool while up in BR. Lungs sound diminished to lower lobes. Has 2+ edema to lower extremities. Has PICC to right upper arm. Voiding well. Pain controlled with ES Tylenol.
[2018-08-20] VITALS (15 sets, daily range): BP systolic 112–130; BP diastolic 63–85; PULSE 94–124; TEMP 97.5–98.2
--- NOTE | 2018-08-20 01:15 | NUR ---
Patient awake, complains of pain to lower abdomen and desire to get back to sleep. Medicated with Trazodone and her scheduled ES Tylenol at this time.
--- NOTE | 2018-08-20 05:00 | NUR ---
Up to bathroom, has another soft formed stool. Lab work obtained from her PICC without problem. No complaints offered at this time. Dressing to abdomen remains dry and intact.
[2018-08-20 06:00] LABS: MEAN CELL VOLUME 94 fl (80.0-100.0); MEAN CORPUSCULAR HGB CONC 33 g/dl (33.0-37.0); MEAN PLATELET VOLUME 10.4 fl (7.4-10.4); PLATELET COUNT 763 K/mm3 (130-400); RED BLOOD COUNT 2.59 M/mm3 (4.10-5.30); REDCELL DISTRIBUTION WIDTH-CV 14.6 % (11.5-14.5)
[2018-08-20 06:01] LABS: HEMATOCRIT 24.3 % (37.0-47.0); HEMOGLOBIN 8.1 g/dl (12.5-16.0); MEAN CORPUSCULAR HEMOGLOBIN 31 pg (27.0-31.0)
[2018-08-20 06:16] LABS: ALBUMIN 2.5 gm/dL (3.5-5.0); BILIRUBIN,TOTAL 0.5 mg/dL (0.0-1.0); CALCIUM 8.4 mg/dL (8.4-10.2); CREATININE, serum 0.49 mg/dL (0.52-1.25); MAGNESIUM 1.9 mg/dL (1.6-2.3); PHOSPHOROUS 3.9 mg/dL (2.5-4.5); POTASSIUM 3.4 mmol/L (3.4-5.0); TOTAL PROTEIN 5.8 gm/dL (6.4-8.2)
[2018-08-20 06:22] LABS: PRE ALBUMIN 9.2 mg/dL (17.6-36.0)
[2018-08-20 08:29] LABS: BAND 12 % (0-10); EOSINOPHIL 1 % (0-4); HYPOCHROMIA 2+; LYMPHOCYTE 9 % (20.0-51.0); NEUTROPHILS 75 % (42.0-75.2); PLATELET ESTIMATE INCREASED (NORMAL)
--- NOTE | 2018-08-20 09:38 | NUR ---
Patient sitting up in chair. She was up to the bathroom this am & voided, she reports stool over night, but not this am. Plan of care reviewed with patient & her spouse, we discussed slight increase in WBC. Patient to have a chest CT for PE ordered by hospitalist, Dr. Stratton made aware & CT of abdomen & pelvis also ordered. She denies nausea, remaining NPO for CT scan. Patient reports more pain this am/very achy/cramping. Not yet able to have tylenol, but still wants to avoid narcotics. Patient still has edema to BLE, but she reports it is much improved. Encouraged IS use, lung sounds diminished. Tele on, Vss on room air, but tachycardia continues. Picc to RUE flushed & blood returned. New abdominal dressing to midline, distal part of incision with purulent drainage. Will continue to closely monitor.
--- NOTE | 2018-08-20 10:09 | NUR ---
SW and SW student attended clinical rounding. Patient is feeling worse today. Plan is still to return home with at discharge, hopefully tomorrow or later this week.
--- NOTE | 2018-08-20 10:43 | NUR ---
Hospitalist team rounded & rounded. Patient working on drinking her oral contrast plans for Ct at 11.
--- NOTE | 2018-08-20 13:16 | NUR ---
Follow up visit from the dietetic technician. No needs right now.
--- NOTE | 2018-08-20 14:28 | NUR ---
Patient to Radiology with [facility] for Ct guided abdominal draiange. Dr. Stratton rounded this afternoon & spoke with patient & her spouse about procedure. Dr. De Los Santos called & aware of plan of care & Antibioitcs changed back to IV.
--- NOTE | 2018-08-20 14:30 | NUR ---
PT BROUGHT DOWN TO CT. PT PLACED IN POSITION AND MONITORING EQUIPMENT PLACED ON PT. VSS.
--- NOTE | 2018-08-20 14:35 | NUR ---
PT TOLERATING PROCEDURE WELL. REMAINS SINUS TACH. VSS
--- NOTE | 2018-08-20 14:40 | NUR ---
PT DOING WELL. HAS SOME PRESSURE AND TENDERNESS ON LOWER RIGHT SIDE
--- NOTE | 2018-08-20 14:45 | NUR ---
PRESSURE INCREASING. VORB FOR 1 MG VERSED AND [address] SIERRA
--- NOTE | 2018-08-20 14:50 | NUR ---
PT MORE RELAXED WITH THE MEDS. INSTRUCTED TO USE SLOW EASY BREATHES. PT ABLE TO FOLLOW INSTRUCTIONS EASILY
--- NOTE | 2018-08-20 14:55 | NUR ---
PT DOING WELL.
--- NOTE | 2018-08-20 15:00 | NUR ---
PT DOOING WELL. TOLERATING PROCEDURE WELL. REMAINS TACHY
--- NOTE | 2018-08-20 15:05 | NUR ---
REMOVED 200 CC PURLULENT DRAINAGE FROM THE LOWER RIGHT SIDE OF PT. DRAIN IN PLACE.
--- NOTE | 2018-08-20 15:10 | NUR ---
REMOVED 300 CC PURULENT DRAINAGE BEFORE PLACING BAG ON THE PT. PT TOLERATED PROCEDURE WELL.
--- NOTE | 2018-08-20 15:15 | NUR ---
MONITORING EQUIPMENT REMOVED. TELE REMAINSIN PLACE FROM THE FLOOR. ONE DDRAIN BAG ON RIGHT LOWER SIDE HAS SCANT AMT PURLUENT DRAINAGE NOTED. DRAIN BAG AT LOWER MIDLINE CURRENTLY HAS NO DRAINAGED VISABLE. NEW ABD SPONGE PLACED TO THE MIDLINE INCISION FOR NOW. PT WAS ASSISTED TO GET UP OFF THE CT TABLE AND INTO CHAIR. DRAIN BAGS ON HER LAP. PT WAS TAKEN BY CT STAFF TO PT ROOM. REPORT CALLED TO NATI FLOWER
--- NOTE | 2018-08-20 15:51 | NUR ---
report to darleen chakraborty
--- NOTE | 2018-08-20 16:00 | NUR ---
PICC intact right upper arm. With sterile technique right upper arm PICC dressing change done with insertion site cleansed with ChloraPrep 1, chlorhexidine impregnated disc applied, skin prep, StatLock, and Tegaderm applied. No signs or symptoms of IV complications noted. No concerns voiced. Arm wrapped with [place] to protect catheter.
--- NOTE | 2018-08-20 16:24 | NUR ---
Patient has returned from procedure. She is really wanting to rest un interupted. Iv zosyn started per orders. Patient assisted with new gown. Abdominal abcess drain x2. One to RLQ & one to midline/LLQ. Purulent drainge noted in bag.
--- NOTE | 2018-08-20 19:10 | NUR ---
Patient awake sitting up in chair. She was able to take a good nap. Reading magazines her friends brought her. She was up and voided. Dinner ordered. Pain elevated to RLQ, tylenol as ordered. Abcess drains were drained x2 purulent drainage present. Her spouse at bedside. Bedside report to Margot RN
--- NOTE | 2018-08-20 21:15 | NUR ---
Patient ready for bed. Takes HS meds without problem. Is alert and oriented x3. Lungs diminished bilaterally, encouraged use of IS. Has midline incision with leo intact. Gauze dressing intact to middle portion of incision which was leaking. Has abscess drain to right lower abdomen, has purulent arnold drainage. Dressing of gauze with occlusive cover. Flushed with 2cc NS at this time. Has abscess drain to left abdomen with purulent drainage in bag, emptied 70cc at this time. Drsg intact. Flushed with 2cc NS at this time. Voiding without problem. Has bilateral lower extremity 1+ pitting edema. Abdomen with active bowel sounds, appears less distended than previous night. PICC to right upper arm intact, IV Zosyn infusing without redness or swelling.
--- NOTE | 2018-08-21 00:05 | NUR ---
SUPERVISED PATIENT TO BATHROOM, NEEDING ASSIST WITH DRAIN TUBES. VOIDS AND BACK TO BED. TAKES ES TYLENOL AT THIS TIME.
[2018-08-21 00:43] VITALS: BP 127/78; PULSE 119; TEMP 99.6
--- NOTE | 2018-08-21 04:30 | NUR ---
Patient tearful when getting up to the bathroom, pain to RLQ is 8/10. Has the abscess drain to right abdomen. After returning to bed, patient was given Oxycodone 5mg po at this time for pain. Emptied 40cc from #2 drain and 30cc from #1 drain.
[2018-08-21 04:55] VITALS: BP 128/76; PULSE 108; TEMP 98.6
--- NOTE | 2018-08-21 06:10 | NUR ---
Patient drowsy, reports pain much improved after Oxycodone.
[2018-08-21 06:53] LABS: MEAN CELL VOLUME 94 fl (80.0-100.0); MEAN CORPUSCULAR HGB CONC 34 g/dl (33.0-37.0); MEAN PLATELET VOLUME 10.5 fl (7.4-10.4); RED BLOOD COUNT 2.52 M/mm3 (4.10-5.30); REDCELL DISTRIBUTION WIDTH-CV 14.8 % (11.5-14.5)
--- NOTE | 2018-08-21 06:54 | NUR ---
appears to be sleeping, awakened easily, bedside shift report received from NATI Frost
[2018-08-21 07:01] LABS: HEMATOCRIT 23.7 % (37.0-47.0); HEMOGLOBIN 8.1 g/dl (12.5-16.0); MEAN CORPUSCULAR HEMOGLOBIN 32 pg (27.0-31.0); PLATELET COUNT 617 K/mm3 (130-400)
--- NOTE | 2018-08-21 07:02 | NUR ---
bedside shift report received from NATI Frost
[2018-08-21 07:03] LABS: CALCIUM 8.3 mg/dL (8.4-10.2); CREATININE, serum 0.47 mg/dL (0.52-1.25); POTASSIUM 3.2 mmol/L (3.4-5.0)
[2018-08-21 07:59] VITALS: BP 124/79; PULSE 118; TEMP 98.6
--- NOTE | 2018-08-21 08:15 | NUR ---
Dr Eckert in to see patient and pulled purulant drainage from drain tubes, will continue to monitor
--- NOTE | 2018-08-21 09:14 | NUR ---
up in chair and had breakfast and tolerated well, c/o some gas pains at this time
--- NOTE | 2018-08-21 09:34 | NUR ---
Dr Diaz and care team in to see patient
--- NOTE | 2018-08-21 09:42 | NUR ---
SW and SW student attended clinical rounds. Patient will not discharge today.
--- NOTE | 2018-08-21 09:55 | NUR ---
ambulating in mijares with physical therapy with steady gait
[2018-08-21 11:17] LABS: BAND 8 % (0-10); BASOPHIL 1 % (0-2); LYMPHOCYTE 9 % (20.0-51.0); METAMYELOCYTE 1 % (0-0); NEUTROPHILS 75 % (42.0-75.2); PLATELET ESTIMATE NORMAL (NORMAL)
[2018-08-21 11:41] VITALS: BP 116/71; PULSE 111; TEMP 98.2
--- NOTE | 2018-08-21 11:45 | NUR ---
remains up in chair, crowder catheter discontinued, will order lunch soon
--- NOTE | 2018-08-21 13:18 | NUR ---
remains up in chair visiting with a friend, denies needs
--- NOTE | 2018-08-21 13:59 | NUR ---
to radiology per WC for CT scan
--- NOTE | 2018-08-21 14:33 | NUR ---
Called to give pain meds to pt in Ct per Dr Ivory request. 1433 121 20 93% on RA.jdl; 1434 Versed 1mg and Fentanyl 50 mcg given ivp via right arm picc line.jdl 1435 123 20 95% jvalentino 1440 120 20 93% denies pain at this time just pressure. jvalentino 1445 123 20 94% 100 mls of purulent drainage removed from right side abdomen drain after changing of drain tube. jvalentino 1450 120 20 108/63 95% pt reports feeling much better. jvalentino 1451 Report to Suzette DAMIAN on surgical floor. Care assumed. jvalentino
--- NOTE | 2018-08-21 14:47 | NUR ---
remains in radiology
--- NOTE | 2018-08-21 15:07 | NUR ---
returned from CT scan per WC, assisted out of WC and ambulated over to recliner, drain sites with gauze are CD&I, scan amount drainage in both drainage bags, denies needs
--- NOTE | 2018-08-21 15:56 | NUR ---
visiting with friends and denies needs
[2018-08-21 16:48] VITALS: BP 109/68; PULSE 113; TEMP 98.3
--- NOTE | 2018-08-21 17:01 | NUR ---
c/o pain to right drain site, medicated with roxicodone 5mg 1 tab
--- NOTE | 2018-08-21 18:46 | NUR ---
bedside shift report given to NATI Frost
--- NOTE | 2018-08-21 20:05 | NUR ---
Patient in bed, friend at bedside. Is alert and oriented x4. Has abscess drains to right and left abdomen, scant arnold drainage noted in dependent drainage bags. Lung sound diminished to bases and clear to upper lobes, encouraged use of IS. Lower legs with decreasing edema, 1+ to legs and feet. Abdomen with leo to midline incision, gauze dressing to lower incision. Drain sponges with occlusive dressing to both drain insertion sites. Right upper arm PICC flushes well with good blood return noted, IV antibiotic Zosyn connected and infusing at this time. Voiding well, clear yellow urine. Reports good pain control with ES Tylenol and occasional dose of Oxycodone 5mg.
--- NOTE | 2018-08-21 21:15 | NUR ---
Medicated with HS meds and dose of Oxycodone 5mg for pain 5/10 to right lower abdomen/drain site. Both drains flushed with 2cc of NS at this time.
[2018-08-22] VITALS (13 sets, daily range): BP systolic 11–129; BP diastolic 56–79; PULSE 11–122; TEMP 97.4–98.3
--- NOTE | 2018-08-22 01:10 | NUR ---
Medicated with scheduled ES Tylenol and Oxycodone 5mg po at this time for pain 10/29. Drainage bags with scant drainage noted. Telemetry sinus tachycardia.
[2018-08-22 06:25] LABS: MEAN CELL VOLUME 94 fl (80.0-100.0); MEAN CORPUSCULAR HGB CONC 33 g/dl (33.0-37.0); MEAN PLATELET VOLUME 10.1 fl (7.4-10.4); RED BLOOD COUNT 2.69 M/mm3 (4.10-5.30); REDCELL DISTRIBUTION WIDTH-CV 14.9 % (11.5-14.5)
[2018-08-22 06:28] LABS: HEMATOCRIT 25.3 % (37.0-47.0); HEMOGLOBIN 8.4 g/dl (12.5-16.0); MEAN CORPUSCULAR HEMOGLOBIN 31 pg (27.0-31.0); PLATELET COUNT 810 K/mm3 (130-400)
[2018-08-22 06:34] LABS: CALCIUM 8.5 mg/dL (8.4-10.2); CREATININE, serum 0.52 mg/dL (0.52-1.25); POTASSIUM 3.5 mmol/L (3.4-5.0)
--- NOTE | 2018-08-22 07:00 | NUR ---
Emptied 15cc from #1 peritoneal drainage bag. Patient had Oxycodone at 0640 with her ES Tylenol and Protonix. #2 drainage bag without output.
[2018-08-22 07:19] LABS: BASOPHIL 1 % (0-2); EOSINOPHIL 2 % (0-4); LYMPHOCYTE 12 % (20.0-51.0); MYELOCYTE 1 % (0-0); NEUTROPHILS 81 % (42.0-75.2); PLATELET ESTIMATE INCREASED (NORMAL)
[2018-08-22 07:20] LABS: POLYCHROMASIA 1+
--- NOTE | 2018-08-22 11:00 | NUR ---
Patient alert and oriented, answers questions appropriately. See assessment. Abdomen soft, non distended. Bowel sounds hypoactive x4 quads. No flatus. No BM x2 days. Midline incision with leo intact. Small amount of purulent drainage noted to lower aspect of incision. Bilateral abscess drains noted to RLQ and LLQ. LLQ drain with minimal arnold drainage noted. RLQ drain with moderate amount of arnold drainage noted. C/o mild abdominal discomfort with movement. No other c/o at this time.
--- NOTE | 2018-08-22 14:00 | NUR ---
PT BROUGHT DOWN TO CT IN WHEELCHAIR. MONITORING EQUIPMENT PLACED. RODNEY DRAINS IN PLACE.
--- NOTE | 2018-08-22 14:05 | NUR ---
LAVELL talked with Nurse about [facility] referral. She asked Dr Stratton who does not feel it is needed as she will go home from the hospital. LAVELL will continue to follow.
--- NOTE | 2018-08-22 14:05 | NUR ---
PT RESTING COMFORTABLLY.
--- NOTE | 2018-08-22 14:10 | NUR ---
SPARKS HERE. TIME OUT DONE.
--- NOTE | 2018-08-22 14:15 | NUR ---
PT DOING WELL. IMAGES TAKEN
--- NOTE | 2018-08-22 14:20 | NUR ---
PT DOING WELL. DR SIERRA LEAVES TO CALL DR JUNIOR
--- NOTE | 2018-08-22 14:25 | NUR ---
PT TURNED TO LEFT SIDE FOR GASTROGRAFIN ENEMA
--- NOTE | 2018-08-22 14:30 | NUR ---
PT HAVING PAIN TO THE RIGHT SIDE WITH MOVEMENT. ENEMA TIP REMOVED. FLUID EXPELLED FROM RECTUM
--- NOTE | 2018-08-22 14:35 | NUR ---
DR SIERRA BACK IN ROOM. PROCEDURE DONE. PT TO BE TAKEN BACK UPSTAIRS IN WHEELCHAIR.
--- NOTE | 2018-08-22 18:55 | NUR ---
[place] to midline incision removed, tincture of benzoin and steri strips applied. Tolerated well.
--- NOTE | 2018-08-22 20:00 | NUR ---
Patient up from CT and back to room via wheelchair. Alert and oriented x 3. Friends at bedside. Shift assessment complete. Abcess drains to right and left abdomen with arnold purulent drainage present. Minimal drainage present in right drain and moderate amount of drainage present to left. Midline incision with edges well approximated, Steri strips in place. Covered distaly with gauze, CDI. Picc line to PER without complications. Edema +1, noted to BLE. Denies further needs at this time.
[2018-08-23] VITALS (7 sets, daily range): BP systolic 108–118; BP diastolic 64–72; PULSE 111–123; TEMP 98.1–100.1
--- NOTE | 2018-08-23 06:21 | NUR ---
Patient has rested well through the night. Minimal needs. Friends remain at bedside. Picc to PER without complications with fluids infusing via pump. Patient complains of pain through the night, given medicaions per orders. Denies further needs at this time. Will report off to day shift.
[2018-08-23 06:50] LABS: BASO # 0.1 (0.0-0.2); BASO % 0.6 % (0.0-2.0); EOS # 0.3 (0.0-0.7); EOS % 1.5 % (0-4.0); GRAN # 15.4 (1.4-6.5); LYMPH # 1.4 (1.2-3.4); LYMPH % 7.6 % (20.0-51.0); MEAN CELL VOLUME 94 fl (80.0-100.0); MEAN CORPUSCULAR HGB CONC 33 g/dl (33.0-37.0); MONO # 1.1 (0.1-0.6); MONO % 5.8 % (1.7-9.3); PLATELET COUNT 809 K/mm3 (130-400); RED BLOOD COUNT 2.62 M/mm3 (4.10-5.30)
[2018-08-23 06:53] LABS: ALBUMIN 2.5 gm/dL (3.5-5.0); BILIRUBIN,TOTAL 0.5 mg/dL (0.0-1.0); CALCIUM 8.4 mg/dL (8.4-10.2); CREATININE, serum 0.51 mg/dL (0.52-1.25); POTASSIUM 3.5 mmol/L (3.4-5.0); TOTAL PROTEIN 5.7 gm/dL (6.4-8.2)
[2018-08-23 06:59] LABS: HEMATOCRIT 24.6 % (37.0-47.0); HEMOGLOBIN 8.2 g/dl (12.5-16.0); MEAN CORPUSCULAR HEMOGLOBIN 31 pg (27.0-31.0)
[2018-08-23 07:00] LABS: PRE ALBUMIN 10.5 mg/dL (17.6-36.0)
[2018-08-23 08:32] LABS: MAGNESIUM 1.8 mg/dL (1.6-2.3); PHOSPHOROUS 4.4 mg/dL (2.5-4.5)
[2018-08-23 10:51] LABS: CHOLESTEROL 127 mg/dL (120-200); TRIGLYCERIDE 168 mg/dL
--- NOTE | 2018-08-23 12:04 | NUR ---
Patient sitting up in chair now, she has been up to the bathroom & voided. Tried to let her sleep in this am. She was up by about 10am. She has had friend visiting & her now at bedside. Dr. Alba rounded & plan of care was reviewed. Picc to RUE IVF & medications per orders. Patient abdomen rounded. Midline distal gauze dressing changed. Purulent drainage noted. Drains to RLQ & LLQ present & flushed per orders. Tylenol for pain, patient does not want her thinking to be cloudy or to be sleeping, so denies roxicodone. Patient reports just being uncomfortable. Spoke with about patient & all questions answered. Tele on patient remains tachy. She is NPO with sips of water-she denies nausea. Will continue to montior.
[2018-08-23 13:19] LABS: MEAN CELL VOLUME 93 fl (80.0-100.0); MEAN CORPUSCULAR HGB CONC 34 g/dl (33.0-37.0); MEAN PLATELET VOLUME 9.5 fl (7.4-10.4); PLATELET COUNT 811 K/mm3 (130-400)
[2018-08-23 13:31] LABS: HEMATOCRIT 25.2 % (37.0-47.0); HEMOGLOBIN 8.5 g/dl (12.5-16.0); MEAN CORPUSCULAR HEMOGLOBIN 31 pg (27.0-31.0)
[2018-08-23 13:49] LABS: BAND 1 % (0-10); LYMPHOCYTE 6 % (20.0-51.0); NEUTROPHILS 89 % (42.0-75.2)
[2018-08-23 13:57] LABS: PLATELET ESTIMATE INCREASED (NORMAL)
--- NOTE | 2018-08-23 14:44 | NUR ---
Hospitalist rounded. Dr Alba rounded again & plan of care was reviewed with patient & her spouse. Patient currently sitting up in chair taking a nap.
--- NOTE | 2018-08-23 17:26 | NUR ---
Patient sitting up visiting with friends. She was up and ambulated the halls. Really tried to encourage patient to slow down with sips & chips, reenforced less intake in more. She is feeling frustrated because she is feeling hunger. TPN was started per orders. She continues to void adequately, accurate I&O. Will monitor.
--- NOTE | 2018-08-23 20:00 | NUR ---
Patient in bed resting, spouse at bedside. Alert and oriented x3. Shift assessment complete. Abcess drains to right and left quadrant with minimal drainage present; irrigated per orders. Midline incision with edges well approximated. Distal portion of midline incision is CDI with gauze dressing. TPN infusing to right upper arm PICC via pump. Patient requests medication for pain 4/10 to abdomen, given medications per orders. Has been up to restroom, stand by assit with steady gait. Denies further needs at this time.
[2018-08-24 03:20] VITALS: BP 127/76; PULSE 116; TEMP 99
--- NOTE | 2018-08-24 06:29 | NUR ---
Patient has rested well through the night. Minimal needs. Spouse remains at bedside. Removed 30 ml of green fluid from right abcess drain. Removed 5ml of thick purulent drainage from left abcess drain. Patient denies further needs at this time. Will report off to day shift.
[2018-08-24 07:15] LABS: BASO # 0.1 (0.0-0.2); BASO % 0.4 % (0.0-2.0); EOS # 0.4 (0.0-0.7); EOS % 2.6 % (0-4.0); GRAN % 79.5 % (42.2-75.2); LYMPH # 1.5 (1.2-3.4); LYMPH % 9.3 % (20.0-51.0); MEAN CELL VOLUME 94 fl (80.0-100.0); MEAN CORPUSCULAR HGB CONC 33 g/dl (33.0-37.0); MEAN PLATELET VOLUME 9.9 fl (7.4-10.4); MONO # 0.9 (0.1-0.6); MONO % 5.8 % (1.7-9.3); PLATELET COUNT 786 K/mm3 (130-400); RED BLOOD COUNT 2.56 M/mm3 (4.10-5.30)
[2018-08-24 07:28] LABS: CALCIUM 8.4 mg/dL (8.4-10.2); CREATININE, serum 0.45 mg/dL (0.52-1.25); MAGNESIUM 2.2 mg/dL (1.6-2.3); PHOSPHOROUS 3.1 mg/dL (2.5-4.5); POTASSIUM 3.6 mmol/L (3.4-5.0)
[2018-08-24 07:30] VITALS: BP 119/75; PULSE 116; TEMP 98.3
[2018-08-24 07:30] LABS: HEMATOCRIT 24.1 % (37.0-47.0); MEAN CORPUSCULAR HEMOGLOBIN 31 pg (27.0-31.0)
--- NOTE | 2018-08-24 08:00 | NUR ---
PATIENT IS DROWSY THIS MORNING AND SLEPT IN. PATIENT UP TO THE CHAIR. PATIENT IS A&O. TACHYCARDIA NOTED, OTHERWISE VSS. TELE IN PLACE. GENERALIZED WEAKNESS NOTED. BOWEL SOUNDS HYPOACTIVE ALL FOUR QUADRANTS. ABDOMEN DISTENDED AND FIRM TO PALPATION. PATIENT DENIES PASSING FLATUS. PATIENT IS NPO. PATIENT DENIES COMPLAINTS OF N/V. UPPER MIDLINE ABDOMINAL INCISION GRADE TAMPER WITH STERI-STRIPS IN PLACE. DISTAL MIDLINE INCISION DRESSED WITH GAUZE & TAPE WITH SCANT AMOUNT OF SHADING ON GAUZE. RIGHT PERITONEAL DRAIN TO DEPENDENT DRAINAGE WITH SCANT AMOUNTS OF GREENISH COLORED DRAINAGE PRESENT IN BAG. LEFT PERITONEAL DRAIN TO DEPENDENT DRAINAGE WITH SCANT AMOUNTS OF THICK, WHITE, PURULENT DRAINAGE NOTED IN DRAIN BAG. PICC TO RUE WITH TPN INFUSING AT 61.5 MLS/HR. POSITIVE PEDAL PULSES EQUAL BILATERALLY. 1+ PITTING EDEMA TO BLE. CALL LIGHT WITHIN REACH. NO OTHER NEEDS AT THIS TIME.
--- NOTE | 2018-08-24 12:30 | NUR ---
PATIENT CALLED OUT REQUESTING NAUSEA MEDICATION. PATIENT GIVEN PRN DOSE OF ZOFRAN IV.
[2018-08-24 13:15] VITALS: BP 119/74; PULSE 116; TEMP 98.4
[2018-08-24 16:25] VITALS: BP 114/69; PULSE 111; TEMP 98.7
--- NOTE | 2018-08-24 20:00 | NUR ---
Patient in bed. Has friends at bedside. Pt concerned the drain to the RLQ smells more like stool tonight. Previous nurse also thought the drain smelled of BM. Was able to flush abscess drain and have return of yellow fluid that smelled of stool. LLQ drain flushed, does not smell like stool, fluid is arnold/purulent. Patient reports pain where drain is on the right, no pain to left drain. Lungs are diminished bilaterally. Midline incision has steri strips intact, bowel sound are hypoactive, no flatus. Has gauze to lower incisional site, dry and intact. Voiding without problem. Is NPO. Has TPN infusing to right PICC without problem. Iv antibiotic infusing to right PICC, flushed well with good blood return. Takes Oxycodone and Seroquel at this time. with sip of water.
--- NOTE | 2018-08-24 20:24 | NUR ---
REPORT GIVEN TO NATI CHOI.
[2018-08-24 20:28] VITALS: BP 114/67; PULSE 109; TEMP 98.5
[2018-08-25] VITALS (7 sets, daily range): BP systolic 106–115; BP diastolic 58–68; PULSE 118–122; TEMP 97–99
--- NOTE | 2018-08-25 00:15 | NUR ---
Medicated with Oxycodone and scheduled ES Tylenol. Telemetry shows ST, increases to 130's with activity.
--- NOTE | 2018-08-25 05:20 | NUR ---
Patient medicated with scheduled ES Tylenol and Protonix at this time. Reports pain to RLQ drain site. Emptied 10cc of foul smelling drainage from #1 drain and 2cc of thick arnold drainage from #2 drain. Voiding well.
[2018-08-25 06:49] LABS: CALCIUM 8.5 mg/dL (8.4-10.2); CREATININE, serum 0.47 mg/dL (0.52-1.25); MAGNESIUM 1.9 mg/dL (1.6-2.3); PHOSPHOROUS 4.2 mg/dL (2.5-4.5); POTASSIUM 3.9 mmol/L (3.4-5.0)
[2018-08-25 07:48] LABS: MEAN CELL VOLUME 96 fl (80.0-100.0); MEAN CORPUSCULAR HGB CONC 32 g/dl (33.0-37.0); PLATELET COUNT 814 K/mm3 (130-400); RED BLOOD COUNT 2.66 M/mm3 (4.10-5.30); REDCELL DISTRIBUTION WIDTH-CV 15.4 % (11.5-14.5)
[2018-08-25 07:51] LABS: HEMATOCRIT 25.4 % (37.0-47.0); HEMOGLOBIN 8.1 g/dl (12.5-16.0); MEAN CORPUSCULAR HEMOGLOBIN 30 pg (27.0-31.0)
[2018-08-25 08:03] LABS: BAND 2 % (0-10); EOSINOPHIL 3 % (0-4); LYMPHOCYTE 10 % (20.0-51.0); NEUTROPHILS 76 % (42.0-75.2); PLATELET ESTIMATE INCREASED (NORMAL)
--- NOTE | 2018-08-25 09:30 | NUR ---
Patient alert and oriented, answers questions appropriately. See assessment. Midline incision with edges well approximated, no drainage noted. RLQ abscess drain with dressing CDI, LLQ abscess drain with dressing CDI. No c/o at this time.
--- NOTE | 2018-08-25 10:59 | NUR ---
SW attended clinical rounding with team. DRs are working on transfer to [facility] for patient today. Family is agreeable.
--- NOTE | 2018-08-25 14:30 | NUR ---
PICC intact right upper arm with sterile dressing change done with insertion site cleansed with chloraprep x 1, chlorhexidine impregnated disk applied. skin prep, stat lock, and tegaderm applied. no signs or symptoms of IV complications noted. no concerns voiced. re-wrapped with deed[place] to protect catheter.
--- NOTE | 2018-08-25 20:30 | NUR ---
Patient in bed. Alert and oriented x4. Has IV Clinimix with Lipids infusing to right PICC line. Telemetry remains ST. Lungs diminished bilateral lower lobes. Has midline incision with steri strips intact. RLQ and LLQ abscess drains with gauze/occlusive dressing D/I. Flushed #1 drain with 2cc NS with return of yellow, foul smelling drainage, #2 drain flushed with 2cc NS with return of arnold drainage. Both drains to DD. Lower leg edema resolved. Takes HS meds including Oxycodone 5mg at this time.
[2018-08-26 03:35] VITALS: BP 113/63; PULSE 120; TEMP 98.5
--- NOTE | 2018-08-26 05:05 | NUR ---
Patient has rested well most of shift. Labs drawn from right PICC and caps changed. Have had no measurable output from #2 drain and 10cc from #1 drain. Has Clinimix with lipids infusing without redness or swelling. Has had only one dose of Oxycodone this shift.
[2018-08-26 05:40] LABS: HEMATOCRIT 25.2 % (37.0-47.0); HEMOGLOBIN 8.3 g/dl (12.5-16.0); MEAN CELL VOLUME 94 fl (80.0-100.0); MEAN CORPUSCULAR HEMOGLOBIN 31 pg (27.0-31.0); MEAN CORPUSCULAR HGB CONC 33 g/dl (33.0-37.0); MEAN PLATELET VOLUME 9.9 fl (7.4-10.4); PLATELET COUNT 723 K/mm3 (130-400); RED BLOOD COUNT 2.68 M/mm3 (4.10-5.30); REDCELL DISTRIBUTION WIDTH-CV 15.2 % (11.5-14.5)
[2018-08-26 06:00] LABS: ALBUMIN 2.8 gm/dL (3.5-5.0); BILIRUBIN,TOTAL 0.4 mg/dL (0.0-1.0); CALCIUM 9.1 mg/dL (8.4-10.2); CREATININE, serum 0.42 mg/dL (0.52-1.25); MAGNESIUM 1.8 mg/dL (1.6-2.3); PHOSPHOROUS 5.7 mg/dL (2.5-4.5); POTASSIUM 3.6 mmol/L (3.4-5.0); TOTAL PROTEIN 6.3 gm/dL (6.4-8.2)
[2018-08-26 06:48] LABS: BAND 1 % (0-10); EOSINOPHIL 2 % (0-4); LYMPHOCYTE 6 % (20.0-51.0); NEUTROPHILS 88 % (42.0-75.2); PLATELET ESTIMATE INCREASED (NORMAL)
[2018-08-26 08:06] VITALS: BP 119/65; PULSE 124; TEMP 99.7
--- NOTE | 2018-08-26 10:00 | NUR ---
Patient alert and oriented, answers questions appropriately. See assessment. Abdomen distended, bowel sounds active. Midline incision with edges well approximated, no drainage noted. LLQ abscess drain dressing changed, tube flushed, minimal drainage noted. RLQ abscess drain dressing changed, tube flushed, minimal drainage noted. C/o generalized discomfort 09/28.
--- NOTE | 2018-08-26 11:00 | NUR ---
Priscila Stratton and Eva in to see patient. Attempting for acceptance to [facility] and [facility] in [place].
--- NOTE | 2018-08-26 11:54 | NUR ---
SW and SW student attended clinical rounding. [facility] did not have a bed yesterday or this AM. Patients choices are #1 [facility] #[address] [facility]. is working on transfer.
[2018-08-26 12:04] VITALS: BP 107/67; PULSE 121; TEMP 97.3
--- NOTE | 2018-08-26 13:00 | NUR ---
Notified by Dr Stratton of [facility] acceptance of transfer.
[2018-08-26 15:04] VITALS: BP 117/59; PULSE 129; TEMP 99.1
--- NOTE | 2018-08-26 19:28 | NUR ---
Patient transferred via EMS to [facility]. Report called to Mary at 1630. Delay in tranfer r/t awaiting EMS availability. Paperwork sent.
== END 2018-08-26 19:30 | disposition short-term general hospital (02) | DRG 329 ==
LOC: COL.ER 15:06 → SURG 16:26 → ICU 16:26 → EDBEDREQ 16:34 → SURG 08-04 11:14 → ICU 08-08 16:41 → SURG 08-18 15:20
PROVIDERS: Family Medicine; Internal Medicine; Internal Medicine Pulmonary Disease; Nurse Practitioner Family; Physician Assistant; Surgery; ADMIT Surgery
PROC: 0DTH0ZZ Resection of Cecum, Open Approach (ICD-10-PCS; principal; 2018-08-05 12:00)
PROC: 0W9B3ZX Drainage of Left Pleural Cavity, Percutaneous Approach, Diagnostic (ICD-10-PCS; 2018-08-09)
PROC: 0W9G3ZZ Drainage of Peritoneal Cavity, Percutaneous Approach (ICD-10-PCS; 2018-08-11)
PROC: 0W9G30Z Drainage of Peritoneal Cavity with Drainage Device, Percutaneous Approach (ICD-10-PCS; 2018-08-20)
PROC: 0W9G30Z Drainage of Peritoneal Cavity with Drainage Device, Percutaneous Approach (ICD-10-PCS; 2018-08-20)
DX: K91.89 Other postprocedural complications and disorders of digestive system (principal); K65.8 Other peritonitis; A41.9 Sepsis, unspecified organism; R65.20 Severe sepsis without septic shock; E43 Unspecified severe protein-calorie malnutrition; K65.1 Peritoneal abscess; K56.7 Ileus, unspecified; E87.1 Hypo-osmolality and hyponatremia; T81.44XA Sepsis following a procedure, initial encounter; J90 Pleural effusion, not elsewhere classified; F05 Delirium due to known physiological condition; E87.8 Other disorders of electrolyte and fluid balance, not elsewhere classified; Y65 Other misadventures during surgical and medical care; Y73.3 Surgical instruments, materials and gastroenterology and urology devices (including sutures) associated with adverse incidents; E87.6 Hypokalemia; G89.18 Other acute postprocedural pain; R53.81 Other malaise; R00.0 Tachycardia, unspecified; D47.3 Essential (hemorrhagic) thrombocythemia; D64.9 Anemia, unspecified
CPT/HCPCS: OP; 99222; 99231-AI; 99232-AI; 99233-AI; 99239; A4217; A4314; C1729; C1751; C9113; G0378; G0463; J0330; J0610; J1100; J1170; J1200; J1450; J1630; J1650; J1815; J1940; J2060; J2250; J2270; J2405; J2543; J2550; J2704; J2795; J2997; J3010; J3370; J3411; J3475; J3480; J7030; J7040; J7050; J7120; J7131; P9016; Q9967

== ENCOUNTER → 2018-09-17 | Outpatient (CLI) | payer BC ==
[~2018-09-17] MED LIST: AMOXICILLIN 8751 TAB PO; COLACE 100100 MG/CAP PO; DULCOLAX STOOL100 MG PO; MIRALAX119G PO; ROXICODONE 55 MG/TAB PO; TYLENOL 500MG500 MG PO; ZOFRAN 4MG T4 MG/TAB PO
== END ==
LOC: COL.RAD 08:29
DX: T81.49XA Infection following a procedure, other surgical site, initial encounter (principal); Z97.5 Presence of (intrauterine) contraceptive device
CPT/HCPCS: Q9967

== ENCOUNTER → 2018-10-08 | Outpatient (CLI) | payer BC | LOC: ZCOL.LAB 14:12 | DX: R19.7 Diarrhea, unspecified (principal) ==

== ENCOUNTER → 2018-11-13 | Outpatient (CLI) | payer BC | LOC: ZCOL.LAB 17:47 | DX: S31.109A Unspecified open wound of abdominal wall, unspecified quadrant without penetration into peritoneal cavity, initial encounter (principal) ==

== ENCOUNTER → 2019-10-06 | Outpatient (CLI) | payer BC | LOC: MC.RAD 09:30 | DX: Z12.31 Encounter for screening mammogram for malignant neoplasm of breast (principal) ==

== ENCOUNTER 2020-10-26 05:15 | Observation (INO) | payer BC ==
[2020-10-26] VITALS (10 sets, daily range): BP systolic 100–122; BP diastolic 63–84; PULSE 77–96; TEMP 97.7–98.2
[~2020-10-26] VITALS: Ht 165.1 cm; Wt 74.1 kg
[2020-10-26] MEDS ORDERED: SINGULAIR 110 MG/TAB PO (05:43)
[2020-10-26] MEDS ORDERED: ASMANEX HF100 MCG/Ac IH (05:43)
--- NOTE | 2020-10-26 12:45 | NUR ---
Patient arrived to floor via bed. She is drowsy but oriented. Denies nausea at this time. Minimal complaints of pain. Bandaids to abdomen incisions are C/D/I. Griffin catheter secured to leg, urine yellow and clear. IVF's infusing as ordered. Oriented patient to room Her is at bedside. No other changes at this time. Call light within reach.
--- NOTE | 2020-10-26 18:30 | NUR ---
Patient has been having a lot of pain to abdomen. Abdominal abdomen has been on at all times. She ambulated once in the hallways. IVF's infusing as ordered. She's had PRN ultram and roxicodone as ordered for pain. No complaints of nausea. She is tolerated full-liquids without issues. No other changes at this time. Call light within reach.
--- NOTE | 2020-10-26 21:00 | NUR ---
Pt. sitting up in bed at this time. Pt. is A&OX3, assessment complete. IV to lt. hand patent, IV fluids infusing per orders. Pt. reports abd. pain at a 5 on pain scale, giving pain meds per orders. Pt. denies further needs, call light within reach.
[2020-10-27] VITALS (7 sets, daily range): BP systolic 108–132; BP diastolic 61–87; PULSE 75–104; TEMP 97.9–98.9
[2020-10-27 06:39] LABS: BASO % 0.1 % (0.0-2.0); GRAN # 13.3 (1.4-6.5); GRAN % 83.7 % (42.2-75.2); HEMOGLOBIN 11.8 g/dl (12.5-16.0); LYMPH # 1.6 (1.2-3.4); LYMPH % 9.8 % (20.0-51.0); MEAN CELL VOLUME 106 fl (80.0-100.0); MEAN CORPUSCULAR HEMOGLOBIN 34 pg (27.0-31.0); MEAN CORPUSCULAR HGB CONC 32 g/dl (33.0-37.0); MEAN PLATELET VOLUME 10.9 fl (7.4-10.4); MONO # 0.9 (0.1-0.6); MONO % 5.8 % (1.7-9.3); PLATELET COUNT 257 K/mm3 (130-400); RED BLOOD COUNT 3.47 M/mm3 (4.10-5.30); REDCELL DISTRIBUTION WIDTH-CV 12.1 % (11.5-14.5)
[2020-10-27 06:46] LABS: HEMATOCRIT 36.6 % (37.0-47.0)
[2020-10-27 06:48] LABS: INR 1.2 (0.8-3.0); PROTHROMBIN TIME 13.9 SECONDS (9.7-12.8)
[2020-10-27 06:50] LABS: BILIRUBIN UNCONJUGATED 0.8 mg/dL (0.0-1.1); BILIRUBIN,DIRECT 0.1 mg/dL (0.0-0.4); BILIRUBIN,TOTAL 0.9 mg/dL (0.0-1.0); CALCIUM 9.6 mg/dL (8.4-10.2); CREATININE, serum 0.6 (0.52-1.25); POTASSIUM 3.5 mmol/L (3.4-5.0); TOTAL PROTEIN 6.9 gm/dL (6.4-8.2)
[2020-10-27 07:03] LABS: ALBUMIN 3.9 gm/dL (3.5-5.0)
--- NOTE | 2020-10-27 09:27 | NUR ---
Initial visit; Patient thanked Chaplain Bell for looking in on her, offering God's blessings and keeping her in [facility] prayers. will look in on Mary while she is a patient at [facility].
--- NOTE | 2020-10-27 09:29 | NUR ---
SW met with the patient to discuss discharge plan. The patient lives in [place] with her , Marcelo (ph#[phone]), and two children. She reports independence with ADLs and does not have any DME. The patient's PCP is Dr. Jonathon Lake and she receives her medications from [facility]. She reports no difficulties obtaining her meds. The patient does not have a DPOA-HC and she was not interested in completing one while here. The patient plans to return home with her family upon discharge. No additional needs at this time.
--- NOTE | 2020-10-27 16:02 | NUR ---
Patient resting in bed, at bedside. Patient has ambulated in hallway today, administered PRN pain medication twice per patient request. Patient has tolerated diet well and denies furhter needs, call light within reach.
[2020-10-27 17:30] LABS: HEPATITIS B CORE AB,TOTAL Negative (()); HEPATITIS B SURFACE ANTIBODY <2.0 (()); HEPATITIS B SURFACE ANTIGEN Negative (Negative); HEPATITIS C VIRUS ANTIBODY Negative (Negative)
--- NOTE | 2020-10-27 17:40 | NUR ---
Pt slightly emotional. Pt reports that her was hoping that she would get to go home today. She stated that she just had to stay a really long time the last time and doesn't want that, but realizes that another day would be good. Gave fresh ice water, pt independent in the room, no other needs verbalized
--- NOTE | 2020-10-27 21:53 | NUR ---
PT CRYING ON WHEN THIS NURSE ARRIVED TO ROOM. STATES "I'VE BEEN WAITING AN HOUR FOR PAIN MEDS". MEDICATED WITH OXYCODONE 10MG PO AT THIS TIME.
--- NOTE | 2020-10-27 22:29 | NUR ---
PT STILL EMOTIONAL, REPORTS PAIN IS "SOME LESS". DILAUDID 0.25MG IVP GIVEN AT THIS TIME. SL TO LEFT HAND FLUSHES WELL. DID VISUALIZE LAP SITES UNDER THE ABDOMINAL BINDER, NOTED 4 LAP SITES WITH DRY BANDAIDS. WARM BLANKET GIVEN FOR COMFORT.
--- NOTE | 2020-10-27 23:40 | NUR ---
PT MORE CALM. TAKES SCHEDULED ES TYLENOL 1000MG PO AT THIS TIME.
--- NOTE | 2020-10-28 00:52 | NUR ---
TRAMADOL 100MG PO FOR LEFT ABD PAIN. REPORTS ABDOMEN FELT BETTER AFTER LOOSENING ABD BINDER.
[2020-10-28 03:53] VITALS: BP 117/71; PULSE 86; TEMP 97.8
--- NOTE | 2020-10-28 04:07 | NUR ---
PT MEDICATED WITH OXYCODONE 10MG FOR ABD PAIN. PT IS MORE CALM AND PAIN IS MANAGED.
[2020-10-28 04:31] LABS: CERULOPLASMIN 28 mg/dL (20-60)
[2020-10-28 07:54] VITALS: BP 116/76; PULSE 78; TEMP 97.6
[2020-10-28 09:16] LABS: IRON,SERUM 44 ug/dL (35-150)
[2020-10-28 09:25] LABS: TOTAL IRON BINDING CAPACITY 337 ug/dL (265-497)
--- NOTE | 2020-10-28 09:57 | NUR ---
Patient was up and ambulated the halls. She did well. Hopeful for discharge home today. Abdominal binder inplace, readjusted for comfort so velcro side opposite of insisions. Patient continues to use PRN medication regularly. She tolerated diet. Will monitor.
--- NOTE | 2020-10-28 10:36 | NUR ---
Patient up and ambulated entire third floor. We discussed side effects of pain medications. Requesting Stool softners. made aware. Colace ordered. We discussed her use of pain medication, motrin also ordered. Her spouse now at bedside.
[2020-10-28 12:10] VITALS: BP 120/75; PULSE 90; TEMP 98.4
[2020-10-28] MEDS ORDERED: TYLENOL 500MG500 MG PO (12:23)
[2020-10-28] MEDS ORDERED: ROXICODONE 55 MG/TAB PO (12:23)
--- NOTE | 2020-10-28 13:45 | NUR ---
Patient ready for discharge. Her spouse here to take her home. Int DC. We reviewed all discharge instructions. We reviewed activity restrictions & abdominal binder. Follow up appt scheduled. [facility] cares & signs & symptoms of infections reviewed, patient knows to call of she has any questions or concerns. Patient wheeled out with all belongings.
[2020-10-28 15:30] LABS: HEPATITIS AB (HAV) IGG INDEX 0.32 Index (<=1.00)
[2020-10-29 11:56] LABS: ANTISMOOTH MUSCLE ANTIBODY Negative (Negative)
== END 2020-10-28 14:51 | disposition home or self-care (01) ==
LOC: SDCO 05:15 → SURG 12:15 → SDCO 10-27 07:59 → SURG 10-27 08:00
PROVIDERS: Internal Medicine Gastroenterology; ADMIT Surgery
DX: K43.2 Incisional hernia without obstruction or gangrene (principal); Z88.6 Allergy status to analgesic agent; J45.909 Unspecified asthma, uncomplicated
CPT/HCPCS: OP; A4314; A9284; C1781; G0378; J0690; J1100; J1170; J1650; J1885; J2250; J2405; J2550; J2704; J2795; J3010; J7120

== ENCOUNTER → 2021-01-31 | Outpatient (CLI) | payer BC ==
[~2021-01-31] MED LIST changes: +ASMANEX HF100 MCG/Ac IH; +SINGULAIR 110 MG/TAB PO
== END ==
LOC: MC.RAD 12:58
DX: Z12.31 Encounter for screening mammogram for malignant neoplasm of breast (principal)

== ENCOUNTER → 2022-03-20 | Outpatient (CLI) | payer BC | LOC: MC.RAD 10:15 | DX: Z12.31 Encounter for screening mammogram for malignant neoplasm of breast (principal) ==

== ENCOUNTER 2022-05-19 21:32 | Emergency (ER) | payer BC ==
[~2022-05-19] VITALS: Ht 167.6 cm; Wt 72.7 kg
[2022-05-19 21:36] VITALS: TEMP 97.4
[2022-05-19 23:12] VITALS: BP 124/78; PULSE 76
== END 2022-05-19 23:12 | disposition home or self-care (01) ==
LOC: COL.ER 21:32
DX: S61.412A Laceration without foreign body of left hand, initial encounter (principal); W01.0XXA Fall on same level from slipping, tripping and stumbling without subsequent striking against object, initial encounter; Y93.01 Activity, walking, marching and hiking

== ENCOUNTER → 2023-07-01 | Outpatient (CLI) | payer BC | LOC: MC.RAD 11:15 | DX: Z12.31 Encounter for screening mammogram for malignant neoplasm of breast (principal) ==

== ENCOUNTER 2024-05-11 02:16 | Observation (INO) | payer BC ==
[~2024-05-11] VITALS: Ht 167.6 cm; Wt 72.0 kg
[2024-05-11] MEDS ORDERED: Ketorolac 15 MG/ML VIAL IV ONE (02:45)
[2024-05-11] MEDS ORDERED: Ondansetron 4 MG/2 ML VIAL IV ONE (02:45)
[2024-05-11 02:53] LABS: BASO # 0.1 K/mm3 (0.0-0.2); BASO % 1.1 % (0.0-2.0); EOS # 0.1 K/mm3 (0.0-0.7); EOS % 1.3 % (0.0-4.0); GRAN % 63.1 % (42.2-75.2); HEMATOCRIT 41.8 % (37.0-47.0); LYMPH # 3.2 K/mm3 (1.2-3.4); LYMPH % 28.5 % (20.0-51.0); MEAN CELL VOLUME 103 fl (80.0-100.0); MEAN CORPUSCULAR HEMOGLOBIN 37 pg (27-31); MEAN CORPUSCULAR HGB CONC 36 g/dl (33.0-37.0); MEAN PLATELET VOLUME 10.2 fl (7.4-10.4); MONO # 0.6 K/mm3 (0.1-0.6); MONO % 5.5 % (1.7-9.3); PLATELET COUNT 295 K/mm3 (130-400); RED BLOOD COUNT 4.06 M/mm3 (4.10-5.30); REDCELL DISTRIBUTION WIDTH-CV 13.5 % (11.5-14.5)
[2024-05-11] MEDS ORDERED: Iohexol 300 - 100 ML VIAL IV ONE (02:53)
[2024-05-11] MEDS ORDERED: NS 50 ML IV ONE (02:54)
[2024-05-11 03:12] LABS: BILIRUBIN,TOTAL 0.8 mg/dL (0.2-1.2); CALCIUM 10.2 mg/dL (8.4-10.2); CREATININE, serum 0.71 mg/dL (0.57-1.11); POTASSIUM 3.9 mEq/L (3.5-4.5); TOTAL PROTEIN 7.1 g/dl (6.2-8.1)
[2024-05-11 03:17] LABS: TROPONIN-I 0.01 ng/mL (0.00-0.033)
[2024-05-11] MEDS ORDERED: Ketorolac 15 MG/ML VIAL IV PRN (04:45)
[2024-05-11] MEDS ORDERED: Ondansetron 4 MG/2 ML VIAL IV PRN (04:45)
[2024-05-11] MEDS ORDERED: Morphine 4 MG/ML VIAL IV PRN (04:45)
[2024-05-11] MEDS ORDERED: NS 1,000 ML IV SCH (04:45)
--- NOTE | 2024-05-11 08:20 | NUR ---
Patient to room 341 from ER. Report obtained. called and made aware of reaction to morphine and dilaudid orders obtained.
[2024-05-11] MEDS ORDERED: HYDROmorphone 0.5 MG/0.5 ML SYRINGE IV PRN (08:30)
--- NOTE | 2024-05-11 09:00 | NUR ---
Patient medication for pain as ordered and admission assessment completed.
[2024-05-11] MEDS ORDERED: PREDFORTE5ML OP (09:21)
[2024-05-11 10:08] VITALS: BP 120/80; PULSE 78; TEMP 98.3
[2024-05-11 11:03] LABS: MAGNESIUM 1.6 mg/dL (1.6-2.6)
--- NOTE | 2024-05-11 12:00 | NUR ---
Patient reports she was able to rest and get some sleep, but awaken to increased pain. Medications as ordered.
[2024-05-11 13:00] VITALS: BP_SYST 120
--- NOTE | 2024-05-11 13:52 | NUR ---
elevator worker met with patient and her , Silviano Robertson# [phone], to discuss discharge planning. Patient lives in [place] with her . PCP is Dr. Lake, [facility]acy [facility]. No issues affording medications. NO DPOA-HC and not interested in completing one at this time. No DME at this time and patient reports to be independent with ADLS. Patient reports she has a form of transportation to get to and from appointments. Patient would like to return home at time of discharge. Discharge plan: Home
--- NOTE | 2024-05-11 14:15 | NUR ---
Patient resting in bed with spouse at her side. Pain again elevated, medication as ordered and request. Mouth swabs provided. Denies other needs at this time
[2024-05-11 18:00] VITALS: BP 126/80; PULSE 78; TEMP 98.5
[2024-05-11 18:04] VITALS: BP_SYST 126
[2024-05-11 19:16] VITALS: BP 130/86; PULSE 72; TEMP 97.6
--- NOTE | 2024-05-11 20:00 | NUR ---
Patient report feeling a little better this eveing. Few ice chip provided as okayed by . IVf as ordered. Fadi to resume cares. Bedside report completed.
[2024-05-11 20:25] VITALS: BP_SYST 130
[2024-05-12] VITALS (12 sets, daily range): BP systolic 126–146; BP diastolic 84–93; PULSE 75–95; TEMP 97.9–99.2
[2024-05-12 04:27] LABS: COLLECTION METHOD CLEAN CATCH
[2024-05-12 04:38] LABS: PH 6.5 (5.0-8.5); URINE APPEARANCE CLEAR (CLEAR/HAZY); URINE BLOOD NEGATIVE (NEGATIVE); URINE COLOR ORANGE (YELLOW); URINE GLUCOSE NEGATIVE (NEGATIVE); URINE KETONE 2+ (NEGATIVE); URINE NITRATE NEGATIVE (NEGATIVE); URINE PROTEIN(semi-quant) TRACE (NEGATIVE)
[2024-05-12 06:47] LABS: BASO # 0.1 K/mm3 (0.0-0.2); BASO % 0.6 % (0.0-2.0); EOS # 0.1 K/mm3 (0.0-0.7); EOS % 1.2 % (0.0-4.0); GRAN # 5.9 K/mm3 (1.4-6.5); GRAN % 59.8 % (42.2-75.2); HEMATOCRIT 40.1 % (37.0-47.0); LYMPH # 3.1 K/mm3 (1.2-3.4); LYMPH % 31.2 % (20.0-51.0); MEAN CELL VOLUME 106 fl (80.0-100.0); MEAN CORPUSCULAR HEMOGLOBIN 37 pg (27-31); MEAN CORPUSCULAR HGB CONC 35 g/dl (33.0-37.0); MEAN PLATELET VOLUME 10.3 fl (7.4-10.4); MONO # 0.7 K/mm3 (0.1-0.6); MONO % 6.9 % (1.7-9.3); PLATELET COUNT 233 K/mm3 (130-400); RED BLOOD COUNT 3.78 M/mm3 (4.10-5.30); REDCELL DISTRIBUTION WIDTH-CV 13.9 % (11.5-14.5)
[2024-05-12 07:02] LABS: CALCIUM 9.7 mg/dL (8.4-10.2); CREATININE, serum 0.67 mg/dL (0.57-1.11); POTASSIUM 3.4 mEq/L (3.5-4.5)
--- NOTE | 2024-05-12 10:01 | NUR ---
PT SITTING UP IN BED. PT REPORTING PAIN OF 7/10 MEDS GIVEN ORDERED. ASSESSMENTS COMPLETE. BOWEL REST CONTINUES PER DR. GRANDE. IV TO RFA WITH NS RUNNING AT 125. PT IS A/O X4. CARE PLAN REVIEWED PT VERBALIZED UNDERSTANDING.
--- NOTE | 2024-05-12 19:44 | NUR ---
Patient resting in bed. Rates pain at 4/10, states this is a tolerable level of pain for her. Denies any needs. Assessment complete. IV in right wrist infusing without complications. Call light and persoanl items in reach. Bed in low position.
[2024-05-13] VITALS (7 sets, daily range): BP systolic 119–143; BP diastolic 89–92; PULSE 71–85; TEMP 97.4–99.1
[2024-05-13] MEDS ORDERED: Ibuprofen 600 MG TAB PO PRN (06:30)
--- NOTE | 2024-05-13 07:45 | NUR ---
PATIENT SITTING UP IN BED WATCHING TV. ALERT AND ORIENTED. THIS RN INT IV TO RFA. EXPLAINED TO PATIENT THAT REGULAR DIET IS ORDERED. PATIENT UNDERSTANDING. DENIES FURTHER NEEDS OR CONCERNS AT THIS TIME. VSS. CALL LIGHT WITHIN REACH.
--- NOTE | 2024-05-13 11:53 | NUR ---
THIS RN PROVIDED PATIENT EDUCATION AND INFORMATION. ALL QUESTIONS ANSWERED. IV TO RFA DISCONTINUED. MINIMAL DRAINAGE NOTED.
--- NOTE | 2024-05-13 12:00 | NUR ---
PATIENT ESCORTED OFF UNIT AT [facility] 1200. ALL BELONGINGS WITH PATIENT.
== END 2024-05-13 12:00 | disposition home or self-care (01) ==
LOC: COL.ER 02:16 → SURG 04:04
PROVIDERS: Emergency Medicine; ADMIT Surgery
DX: K56.50 Intestinal adhesions [bands], unspecified as to partial versus complete obstruction (principal); Z90.49 Acquired absence of other specified parts of digestive tract; Z87.19 Personal history of other diseases of the digestive system; Z90.89 Acquired absence of other organs
CPT/HCPCS: G0378; J1171; J1885; J2405; J7030; Q9967